=== PATIENT | male | born 1970 | race Caucasian/White ===

== ENCOUNTER 2021-04-29 08:10 | Inpatient (IN) ==
[2021-04-29] MEDS ORDERED: SODIUM CHLORIDE 0.9% 500 ML IV STA (08:36)
[2021-04-29] MEDS ORDERED: ACETAMINOPHEN 1,000 MG/100 ML VIAL IV STA (08:36)
[2021-04-29] MEDS ORDERED: ONDANSETRON INJ 2 MG/ML 2 ML VIAL IV STA (08:36)
[2021-04-29 08:48] LABS: Hematocrit (blood only) 38.6 % (42-52); Hemoglobin 13.3 g/dL (14.0-18.0); Mean Corpuscular Hgb Conc 34.5 g/dL (32-36); Mean Corpuscular Volume 81.3 fL (80-100); Mean Platelet Volume 11.2 fL (7.4-10.4); Platelet Count 129 K/uL (130-400); RDW Coefficient of Variation 13.1 % (11.5-14.5); RDW Standard Deviation 39.2 fL (36.4-46.3); Red Blood Count 4.75 M/uL (4.7-6.1); White Blood Count 7.08 K/uL (4.8-10.8)
[2021-04-29 09:07] LABS: Alanine Aminotransferase 147 (12-78); Albumin Level 2.5 gm/dl (3.4-5.0); Aspartate Aminotransferase 159 U/L (15-37); Blood Urea Nitrogen 27 mg/dl (7-18); Carbon Dioxide 21 mmol/L (21-32); Chloride 100 mmol/L (98-107); Creatinine Clr Calc Pharmacy 84.5 ml/min; Est GFR (African American) 71.7 ml/min; Est GFR (Non-African American) 61.9 ml/min; Glucose 160 mg/dl (70-99); Lipase 105 U/L (73-393); Potassium 4.5 mmol/L (3.5-5.1); Sodium 132 mmol/L (136-145)
[2021-04-29 09:10] LABS: Albumin Globulin Ratio 0.5 (0.9-2); Alkaline Phosphatase 211 U/L (45-117); Bilirubin,Total 0.6 mg/dl (0.2-1); Globulin 4.8 gm/dl (2.5-4.0); Total Protein 7.3 gm/dl (6.4-8.2); Troponin I < 0.015 ng/ml (0-0.045)
[2021-04-29 09:19] LABS: Basophils # (auto) 0.01 K/uL (0-0.2); Basophils % (auto) 0.1 %; Immature Granulocytes # (auto) 0.04 K/uL (0.00-0.02); Immature Granulocytes % (auto) 0.6 %; Lymphocytes # (auto) 1.15 K/uL (1.2-3.4); Lymphocytes % (auto) 16.2 %; Monocytes # (auto) 0.37 K/uL (0.11-0.59); Monocytes % (auto) 5.2 %; Neutrophils # (auto) 5.51 K/uL (1.4-6.5); Neutrophils % (auto) 77.9 %
--- NOTE | 2021-04-29 09:21 | XRay Report ---
XR chest 1V portable CLINICAL HISTORY: weak, cough. COMPARISON STUDY: No previous studies for comparison. TECHNIQUE: 1 view of the chest FINDINGS: Single frontal view of the chest demonstrates the cardiomediastinal silhouette to be within normal li mits. Patchy interstitial and alveolar opacities are present bilaterally. The findings are most jayy cteristic of a viral type pneumonitis. Covid 19 pneumonia should be excluded. There is no evidence fo r pleural effusion. There is no evidence for vascular congestion. There is no acute osseous pathology . IMPRESSION: Patchy interstitial and alveolar opacities bilaterally characteristic of a viral type pne umonitis and probable early Covid 19 pneumonia. ACT 112: Negative or not required by law. Electronically signed by: Ronnell Coleman M.D. 04/29/2021 9:20 AM
[2021-04-29 09:31] LABS: Influenza A virus by PCR Negative (Neg); Influenza B virus by PCR Negative (Neg); RSV by PCR Negative (Neg)
[2021-04-29 09:49] LABS: SARS CoV2 RNA(COVID-19) InHosp POSITIVE (Negative)
--- NOTE | 2021-04-29 10:09 | Emergency Department Note ---
Impression & Plan Dizziness, COVID-19, Nausea & vomiting ED Provider Note Provider: Cam Suárez MD DATE OF SERVICE: 04/26/2021 CHIEF COMPLAINT: Weakness, cough, vomiting HISTORY OF PRESENT ILLNESS: Patient is a 50-year-old gentleman from [place] history of hypertension and diabetes not on insulin presenting here today reporting for the past 3 to 4 days of developing cough and body or drinking for the last several days. States his taste and smell are altered and he is feeling a bit weak and disoriented. Patient denies any trauma or falls. Patient is not vaccinated for Covid. Fevers reported at times. Patient endorses diffuse myalgias and headache but denies significant abdominal pain. Reports he feels a bit short of breath particularly with walking. 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 REVIEW OF SYSTEMS: A total of 10 review of systems was obtained and negative except as stated above in the HPI. 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 NECK: Trachea midline. ENT: Mucous membranes pink and moist. LUNGS: Airway patent. No retractions. Breath sounds clear HEART: Regular rate and rhythm. No chest wall tenderness ABDOMEN: Soft and non-tender, without guarding or rebound. SKIN: Acyanotic, warm, dry, without rashes EXTREMITIES: Without swelling, tenderness or deformity NEUROLOGICAL: No focal deficits moving all extremities to command. No aphasia. No facial droop or slurred speech. EK bpm sinus tachycardia. No PVC or PAC. No acute ST segment elevation or depression. QTC 461. CONTINUOUS CARDIAC MONITORING: was ordered and showed a heart rate of 90s-110s bpm in normal sinus rhythm to sinus tachycardia Patient's laboratory studies and imaging reviewed. Differential includes Infection, dehydration, metabolic abnormality, hypo/hyperglycemia, electrolyte disturbance, anemia, hypoxia, cardiac sources, intracerebral event, toxicologic, neurologic, as well as other pathologies. IMPRESSION/MEDICAL DECISION MAKIN-year-old unvaccinated gentleman positive for Covid today with Covid type symptoms. Chest x-ray consistent with Covid per radiology. No anemia or l eukocytosis. Patient does not appear meningitic. No focal neurological deficit and doubt acute CVA or stroke. No trauma history. Very minimal hyponatremia. Mild transaminitis without bilirubin elevation. No concerning findings for pancreatitis. Influenza and RSV testing is negative. Given some IV fluids here and some Zofran with some improvement of his nausea. Patient somewhat tenuous initially with oxygen in the low 90s however can be weaned off oxygen fairly quickly here. Patient endorses generalized fatigue and weakness but is not altered. CT of the chest completed given his risk factors to exclude PE. Given some Tylenol here to help with fever. CT of the chest completed without findings of PE per radiology but inflammatory changes consistent with Covid. Weaned off oxygen. Updated patient with findings. Attempted ambulation of the patient myself in the room and he became significantly dizzy and lightheaded with standing and is somewhat hypotensive. Patient was unable to take more than a step or 2 and then had to sit back down on the bed. Believe more dehydrationa l and given some IV fluid. . Given this discussed further care at the hospital and the hospitalist was contacted. DIAGNOSIS: COVID-19 pneumonia, nausea and vomiting, dizziness DISPOSITION: Hospitalist will evaluate Patient was agreeable with this plan. Past Med/Surg History Social History Smoking Status: Never smoker Home Meds Home Medications Medication Instructions Recorded Confirmed atorvastatin 10 mg tablet 10 mg PO DAILY 04/29/21 04/29/21 glipizide 5 mg tablet 5 mg PO BID 04/29/21 04/29/21 lisinopril 40 mg tablet 40 mg PO DAILY 04/29/21 04/29/21 metformin 1,000 mg tablet 1,000 mg PO BID 04/29/21 04/29/21 naproxen sodium 220 mg tablet 220 mg PO Q12H PRN 04/29/21 04/29/21 Results & Data (ED) Vital Signs Vital Signs - 24 hr 04/29/21 08:18 04/29/21 08:22 04/29/21 09:51 Temperature 38.2 C H Temperature Source Oral Pulse Rate 99 H Pulse Rate [Finger] 100 H Pulse Rhythm [Finger] Pulse Strength [Finger] Respiratory Rate 20 20 Respiratory Effort / Characteristics Respiratory Depth Respiratory Pattern Blood Pressure 137/84 Blood Pressure [Left Arm] 97/65 L Blood Pressure Mean 101 Blood Pressure Mean [Left Arm] 75 Blood Pressure Position [Left Arm] Pulse Oximetry 90 93 94 Oxygen Delivery Method Room Air Nasal Cannula Room Air Oxygen Flow Rate 2 Sepsis Recent Fever Within 48 Hours Yes Sepsis New/Unexplained Change in Mental Status No Sepsis Action Taken by Nursing No Action Required 04/29/21 11:00 04/29/21 13:00 Temperature Temperature Source Pulse Rate Pulse Rate [Finger] 92 H 87 Pulse Rhythm [Finger] Regular Regular Pulse Strength [Finger] Normal Normal Respiratory Rate 18 18 Respiratory Effort / Characteristics Non-Labored Non-Labored Respiratory Depth Normal Normal Respiratory Pattern Regular Regular Blood Pressure Blood Pressure [Left Arm] 84/61 L 113/62 Blood Pressure Mean Blood Pressure Mean [Left Arm] 68 79 Blood Pressure Position [Left Arm] Lying Lying Pulse Oximetry 94 96 Oxygen Delivery Method Room Air Room Air Oxygen Flow Rate Sepsis Recent Fever Within 48 Hours Sepsis New/Unexplained Change in Mental Status Sepsis Action Taken by Nursing Laboratory Data Result diagrams: 04/29/21 08:25 04/29/21 08:25 Lab Results 04/29/21 04/29/21 04/29/21 Range/Units 08:25 08:25 08:25 WBC 7.08 (4.8-10.8) K/uL RBC 4.75 (4.7-6.1) M/uL Hgb 13.3 L (14.0-18.0) g/dL Hct 38.6 L (42-52) % MCV 81.3 (80-100) fL MCH 28.0 (25-34) pg MCHC 34.5 (32-36) g/dL RDW Std Deviation 39.2 (36.4-46.3) fL RDW Coeff of Daryl 13.1 (11.5-14.5) % Plt Count 129 L (130-400) K/uL MPV 11.2 H (7.4-10.4) fL Immature Gran % (Auto) 0.6 % Neut % (Auto) 77.9 % Lymph % (Auto) 16.2 % Kerr % (Auto) 5.2 % Eos % (Auto) 0.0 % Baso % (Auto) 0.1 % Neut # (Auto) 5.51 (1.4-6.5) K/uL Lymph # (Auto) 1.15 L (1.2-3.4) K/uL Kerr # (Auto) 0.37 (0.11-0.59) K/uL Eos # (Auto) 0.00 (0-0.5) K/uL Baso # (Auto) 0.01 (0-0.2) K/uL Immature Gran # (Auto) 0.04 H (0.00-0.02) K/uL PT 10.0 (9.0-12.0) Seconds INR 1.0 (0.9-1.1) Sodium 132 L (136-145) mmol/L Potassium 4.5 (3.5-5.1) mmol/L Chloride 100 (98-107) mmol/L Carbon Dioxide 21 (21-32) mmol/L Anion Gap 11.0 (3-11) BUN 27 H (7-18) mg/dl Creatinine 1.33 (0.6-1.4) mg/dl Est Cr Clr Drug Dosing 84.5 ml/min Est GFR ( Amer) 71.7 ml/min Est GFR (Non-Af Amer) 61.9 ml/min BUN/Creatinine Ratio 20.0 (10-20) Glucose 160 H (70-99) mg/dl Lactate (0.4-2.0) mmol/L Calcium 8.0 L (8.5-10.1) mg/dl Total Bilirubin 0.6 (0.2-1) mg/dl AST 159 H (15-37) U/L ALT 147 H (12-78) Alkaline Phosphatase 211 H (45-117) U/L Troponin I < 0.015 (0-0.045) ng/ml C-Reactive Protein 8.40 H (0-0.29) mg/dl Total Protein 7.3 (6.4-8.2) gm/dl Albumin 2.5 L (3.4-5.0) gm/dl Globulin 4.8 H (2.5-4.0) gm/dl Albumin/Globulin Ratio 0.5 L (0.9-2) Lipase 105 (73-393) U/L Procalcitonin (0-0.5) ng/ml SARS-CoV-2 (PCR) (Negative) Influenza Type A (PCR) (Neg) Influenza Type B (PCR) (Neg) RSV (RT-PCR) (Neg) 04/29/21 04/29/21 04/29/21 Range/Units 08:25 08:25 09:05 WBC (4.8-10.8) K/uL RBC (4.7-6.1) M/uL Hgb (14.0-18.0) g/dL Hct (42-52) % MCV (80-100) fL MCH (25-34) pg MCHC (32-36) g/dL RDW Std Deviation (36.4-46.3) fL RDW Coeff of Daryl (11.5-14.5) % Plt Count (130-400) K/uL MPV (7.4-10.4) fL Immature Gran % (Auto) % Neut % (Auto) % Lymph % (Auto) % Kerr % (Auto) % Eos % (Auto) % Baso % (Auto) % Neut # (Auto) (1.4-6.5) K/uL Lymph # (Auto) (1.2-3.4) K/uL Kerr # (Auto) (0.11-0.59) K/uL Eos # (Auto) (0-0.5) K/uL Baso # (Auto) (0-0.2) K/uL Immature Gran # (Auto) (0.00-0.02) K/uL PT (9.0-12.0) Seconds INR (0.9-1.1) Sodium (136-145) mmol/L Potassium (3.5-5.1) mmol/L Chloride (98-107) mmol/L Carbon Dioxide (21-32) mmol/L Anion Gap (3-11) BUN (7-18) mg/dl Creatinine (0.6-1.4) mg/dl Est Cr Clr Drug Dosing ml/min Est GFR ( Amer) ml/min Est GFR (Non-Af Amer) ml/min BUN/Creatinine Ratio (10-20) Glucose (70-99) mg/dl Lactate 1.7 (0.4-2.0) mmol/L Calcium (8.5-10.1) mg/dl Total Bilirubin (0.2-1) mg/dl AST (15-37) U/L ALT (12-78) Alkaline Phosphatase (45-117) U/L Troponin I (0-0.045) ng/ml C-Reactive Protein (0-0.29) mg/dl Total Protein (6.4-8.2) gm/dl Albumin (3.4-5.0) gm/dl Globulin (2.5-4.0) gm/dl Albumin/Globulin Ratio (0.9-2) Lipase (73-393) U/L Procalcitonin 0.38 (0-0.5) ng/ml SARS-CoV-2 (PCR) POSITIVE A* (Negative) Influenza Type A (PCR) Negative (Neg) Influenza Type B (PCR) Negative (Neg) RSV (RT-PCR) Negative (Neg) Administered Medications Discontinued Medications Sodium Chloride (Nss) 500 mls @ 999 mls/hr IV .Q31M STA Stop: 04/29/21 09:06 Last Infusion: 04/29/21 09:48 Dose: 0 mls/hr Documented by: [id number] Admin: 04/29/21 08:56 Dose: 999 mls/hr Documented by: [id number] Acetaminophen (Ofirmev) 1,000 mg in 100 mls @ 400 mls/hr IV NOW STA Stop: 04/29/21 08:50 Last Infusion: 04/29/21 09:48 Dose: 0 mls/hr Documented by: [id number] Admin: 04/29/21 08:52 Dose: 400 mls/hr Documented by: [id number] Sodium Chloride (Nss 1000ml) 500 mls @ 999 mls/hr IV .Q31M ONE Stop: 04/29/21 12:11 Last Infusion: 04/29/21 12:33 Dose: 0 mls/hr Documented by: [id number] Admin: 04/29/21 11:56 Dose: 999 mls/hr Documented by: [id number] Ondansetron HCl (Ondansetron Inj 2 Mg/Ml 2 Ml Vial) 4 mg IV NOW STA Stop: 04/29/21 08:37 Last Admin: 04/29/21 08:52 Dose: 4 mg Documented by: [id number] Imaging Data Radiologist's Impression: Chest X-Ray 04/29/21 08:36 XR chest 1V portable CLINICAL HISTORY: weak, cough. COMPARISON STUDY: No previous studies for comparison. TECHNIQUE: 1 view of the chest FINDINGS: Single frontal view of the chest demonstrates the cardiomediastinal silhouette to be within normal limits. Patchy interstitial and alveolar opacities are present bilaterally. The findings are most characteristic of a viral type pneumonitis. Covid 19 pneumonia should be excluded. There is no evidence for pleural effusion. There is no evidence for vascular congestion. There is no acute osseous pathology. IMPRESSION: Patchy interstitial and alveolar opacities bilaterally characteristic of a viral type pneumonitis and probable early Covid 19 pneumonia. ACT 112: Negative or not required by law. Electronically signed by: Ronnell Coleman M.D. 04/29/2021 9:20 AM Chest CTA 04/29/21 09:34 CT ANGIOGRAPHY OF THE CHEST, PULMONARY EMBOLUS PROTOCOL CLINICAL HISTORY: COVID, SOB. Evaluate for pulmonary embolus. COMPARISON STUDY: Chest radiograph April 29, 2021. TECHNIQUE: Following IV administration of 120 mL of Optiray, helical axial images of the chest were obtained utilizing the pulmonary embolus protocol. Maximal intensity projections and sagittal and coronal reformats were viewed on an independent 3D workstation. IV contrast was administered without complication. Automated exposure control was utilized for the study. A dose lowering technique was utilized adhering to the principles of ALARA. CT DOSE: 801.70 mGy.cm FINDINGS: No pulmonary emboli are identified. There is no thoracic aortic dissection. The size the heart is normal. There is no pericardial effusion. There are multiple mildly enlarged mediastinal and bilateral hilar lymph nodes. No pneumothorax or pleural effusion is noted. Extensive multifocal groundglass opacities are noted throughout the lungs. Developing consolidation within the right lower lobe is noted. Central airways are patent. No acute fracture or suspicious lesion is identified within visualized portions of the bony thorax. The gallbladder is surgically absent. IMPRESSION: 1. No pulmonary emboli identified. 2. Extensive ground glass opacities throughout the lungs with developing consolidation. The findings represent viral pneumonia. 3. Multiple mildly enlarged mediastinal and bilateral hilar lymph nodes which are likely reactive. ACT 112: Negative or not required by law. Electronically signed by: Dimitry Van M.D. 04/29/2021 10:53 AM Discharge Plan Visit Data Chief Complaint: Illness Stated Complaint: WEAKNESS, DISORIENTED ED Provider: Cam Suárez Discharge Problem: Dizziness, COVID-19, Nausea & vomiting Patient Disposition: Being Evaluated by Hospitalist Forms Stand Alone Forms: My [facility] [place] [employer] Prescriptions Prescriptions: No Action atorvastatin 10 mg Tablet 10 mg PO DAILY RF: 0 metformin 1,000 mg Tablet 1,000 mg PO BID RF: 0 naproxen sodium 220 mg Tablet 220 mg PO Q12H PRN (Reason: Pain) RF: 0 lisinopril 40 mg Tablet 40 mg PO DAILY RF: 0 glipizide 5 mg Tablet 5 mg PO BID RF: 0 Referrals Referrals: MICHAEL HEAD [Other] Discharge Problem: Nausea & vomiting Qualifiers: Vomiting type: unspecified Qualified Code(s): R11.2 - Nausea with vomiting, unspecified
--- NOTE | 2021-04-29 10:54 | CT Scan Report ---
CT ANGIOGRAPHY OF THE CHEST, PULMONARY EMBOLUS PROTOCOL CLINICAL HISTORY: SINCERE, SOB. Evaluate for pulmonary embolus. COMPARISON STUDY: Chest radiograph April 29, 2021. TECHNIQUE: Following IV administration of 120 mL of Optiray, helical axial images of the chest were o btained utilizing the pulmonary embolus protocol. Maximal intensity projections and sagittal and cor onal reformats were viewed on an independent 3D workstation. IV contrast was administered without co mplication. Automated exposure control was utilized for the study. A dose lowering technique was ut ilized adhering to the principles of ALARA. CT DOSE: 801.70 mGy.cm FINDINGS: No pulmonary emboli are identified. There is no thoracic aortic dissection. The size the h eart is normal. There is no pericardial effusion. There are multiple mildly enlarged mediastinal and bilateral hilar lymph nodes. No pneumothorax or pleural effusion is noted. Extensive multifocal groun dglass opacities are noted throughout the lungs. Developing consolidation within the right lower lobe is noted. Central airways are patent. No acute fracture or suspicious lesion is identified within vi sualized portions of the bony thorax. The gallbladder is surgically absent. IMPRESSION: 1. No pulmonary emboli identified. 2. Extensive ground glass opacities throughout the lungs with developing consolidation. The findings represent viral pneumonia. 3. Multiple mildly enlarged mediastinal and bilateral hilar lymph nodes which are likely reactive. ACT 112: Negative or not required by law. Electronically signed by: Dimitry Van M.D. 04/29/2021 10:53 AM
[2021-04-29] MEDS ORDERED: SODIUM CHLORIDE 0.9% 1000ML 500 ML IV ONE (11:41)
[2021-04-29] MEDS ORDERED: GLUCAGON FOR INJ 1 MG VIAL SQ PRN (14:39)
[2021-04-29] MEDS ORDERED: GLUCOSE 40% GEL 15 GM TUBE PO PRN (14:39)
[2021-04-29] MEDS ORDERED: GLUCOSE 10 TABS/TUBE PO PRN (14:39)
[2021-04-29] MEDS ORDERED: DEXTROSE 50% 50 ML SYRINGE IV PRN (14:39)
[2021-04-29] MEDS ORDERED: CARBOHYDRATES FOR HYPOGLYCEMIA PO PRN (14:39)
--- NOTE | 2021-04-29 15:24 | History & Physical Report ---
Date of Service April 29, 2021 Assessment & Plan (1) COVID-19: Plan: -Admit to 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 -In the ED, patient tested positive for COVID-19. He is not vaccinated. -Currently saturating well on room air, does not meet criteria for COVID-19 directed therapies at this time. CTA chest negative for pulmonary embolism however shows signs of viral pneumonia. -Ambulation trial was attempted in ED however patient was too weak and fell back onto the bed. Also having intermittent hypotension. -Continue supportive care with IVF, PT/OT eval's -Given reports of diarrhea, will check for C. difficile and stool PCR (2) Hypotension: Plan: -Intermittent hypotension that improved after IVF -Likely due to hypovolemia from nausea, vomiting, diarrhea, poor appetite -Hold antihypertensives, continue IVF (3) Transaminitis: Plan: -T bili 0.6, AST 139, ALT 147, alk phos 211 -Likely due to COVID-19 -Patient denies abdominal pain -Continue to trend, if not improving, consider imaging (4) DM type 2 (diabetes mellitus, type 2): Plan: -Unknown HgbA1c, will check with a.m. labs -Hold home oral agents and utilize NovoLog per protocol while hospitalized (5) HTN (hypertension): Plan: -Holding antihypertensives above (6) DVT prophylaxis: Plan: -SQ Lovenox Admission and Anticipated Discharge Date Admission Date: April 29, 2021 History of Present Illness Chief Complaint: Lightheadedness, nausea, diarrhea Primary Care Provider: Tomas Buitrago, 50-year-old male with PMH DM type II, HTN, dyslipidemia, and other problems to below who presents to the ED for evaluation of lightheadedness, nausea, diarrhea. 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 Reports getting sick about 3 to 4 days ago and has been staying in his truck [place] the truck stop. Patient reports severe nausea with a very poor appetite. He is also had vomiting and diarrhea. Denies hematemesis, coffee- ground emesis, bright red bleeding per rectum, dark tarry stools. No abdominal pain. Patient has a low-grade fever in the ED however is unaware of any fevers prior to coming to the hospital. Patient reports a minimal nonproductive cough. No shortness of breath. Reports feeling very lightheaded and dizzy with standing however no syncopal event. No chest pain. Denies urinary symptoms. In the ED, patient tested positive for COVID-19. He is saturating well on room air. Labs show a mild transaminitis. CTA chest negative for pulmonary embolism. Patient was given IV Tylenol, IV Zofran, IVF. Allergies Allergy/AdvReac Type Severity Reaction Status Date / Time No Known Allergies Allergy Verified 04/29/21 18:06 Home Medications Medication Instructions Recorded Confirmed Type atorvastatin 10 mg tablet 10 mg PO DAILY 04/29/21 04/29/21 History glipizide 5 mg tablet 5 mg PO BID 04/29/21 04/29/21 History lisinopril 40 mg tablet 40 mg PO DAILY 04/29/21 04/29/21 History metformin 1,000 mg tablet 1,000 mg PO BID 04/29/21 04/29/21 History naproxen sodium 220 mg tablet 220 mg PO Q12H PRN 04/29/21 04/29/21 History Past Med/Surg History Medical History DM type 2 (diabetes mellitus, type 2) Dyslipidemia HTN (hypertension) Surgical History No significant past surgical history Family History (Updated 04/29/21 @ 15:38 by PORSHA Garcia) Denies family history of Heart disease Stroke Social History (Updated 04/29/21 @ 15:38 by PORSHA Garcia) Smoking Status: Never smoker Hx Alcohol Use: Yes Alcohol Intake Frequency: 2-4 x/Month Review of Systems Review of Systems: ROS per HPI, all other systems reviewed and negative Physical Exam Physical Exam: Please refer to Dr. Gauthier's addendum for physical exam Results & Data Results & Data ([facility]) Vital Signs (Past 12 Hours) Vital Signs Temp Pulse Pulse Resp BP BP Pulse Ox 04/29/21 13:00 87 18 113/62 96 04/29/21 11:00 92 H 18 84/61 L 94 04/29/21 09:51 100 H 20 97/65 L 94 04/29/21 08:22 93 04/29/21 08:18 38.2 C H 99 H 20 137/84 90 Laboratory Results Short CBC 04/29/21 Range/Units 08:25 WBC 7.08 (4.8-10.8) K/uL Hgb 13.3 L (14.0-18.0) g/dL Hct 38.6 L (42-52) % Plt Count 129 L (130-400) K/uL BMP 04/29/21 08:25 Sodium 132 L Potassium 4.5 Chloride 100 Carbon Dioxide 21 BUN 27 H Creatinine 1.33 Glucose 160 H Calcium 8.0 L Cardiac Enzymes 04/29/21 Range/Units 08:25 Troponin I < 0.015 (0-0.045) ng/ml Liver Function 04/29/21 Range/Units 08:25 Total Bilirubin 0.6 (0.2-1) mg/dl AST 159 H (15-37) U/L ALT 147 H (12-78) Alkaline Phosphatase 211 H (45-117) U/L Albumin 2.5 L (3.4-5.0) gm/dl Diagnostic Findings Chest X-Ray 04/29/21 08:36 XR chest 1V portable CLINICAL HISTORY: weak, cough. COMPARISON STUDY: No previous studies for comparison. TECHNIQUE: 1 view of the chest FINDINGS: Single frontal view of the chest demonstrates the cardiomediastinal silhouette to be within normal limits. Patchy interstitial and alveolar opacities are present bilaterally. The findings are most characteristic of a viral type pneumonitis. Covid 19 pneumonia should be excluded. There is no evidence for pleural effusion. There is no evidence for vascular congestion. There is no acute osseous pathology. IMPRESSION: Patchy interstitial and alveolar opacities bilaterally characteristic of a viral type pneumonitis and probable early Covid 19 pneumonia. ACT 112: Negative or not required by law. Electronically signed by: Ronnell Coleman M.D. 04/29/2021 9:20 AM Chest CTA 04/29/21 09:34 CT ANGIOGRAPHY OF THE CHEST, PULMONARY EMBOLUS PROTOCOL CLINICAL HISTORY: COVID, SOB. Evaluate for pulmonary embolus. COMPARISON STUDY: Chest radiograph April 29, 2021. TECHNIQUE: Following IV administration of 120 mL of Optiray, helical axial images of the chest were obtained utilizing the pulmonary embolus protocol. Maximal intensity projections and sagittal and coronal reformats were viewed on an independent 3D workstation. IV contrast was administered without complicat ion. Automated exposure control was utilized for the study. A dose lowering technique was utilized adhering to the principles of ALARA. CT DOSE: 801.70 mGy.cm FINDINGS: No pulmonary emboli are identified. There is no thoracic aortic dissection. The size the heart is normal. There is no pericardial effusion. There are multiple mildly enlarged mediastinal and bilateral hilar lymph nodes. No pneumothorax or pleural effusion is noted. Extensive multifocal groundglass opacities are noted throughout the lungs. Developing consolidation within the right lower lobe is noted. Central airways are patent. No acute fracture or suspicious lesion is identified within visualized portions of the bony thorax. The gallbladder is surgically absent. IMPRESSION: 1. No pulmonary emboli identified. 2. Extensive ground glass opacities throughout the lungs with developing consolidation. The findings represent viral pneumonia. 3. Multiple mildly enlarged mediastinal and bilateral hilar lymph nodes which are likely reactive. ACT 112: Negative or not required by law. Electronically signed by: Dimitry Van M.D. 04/29/2021 10:53 AM Code Status & VTE Plan VTE Prophylaxis Plan VTE Prophylaxis will be ordered: Yes Supervising Physician Co-Signing Physician Notes Patient is a 50-year-old male with history of diabetes mellitus, hypertension and other medical problems presents with history of nausea, vomiting, diarrhea, generalized weakness and dizziness since 3 to 4 days duration. Patient also states having poor appetite. States having subjective low-grade fever but denies any chest pain, shortness of breath. Please review HPI for complete details of presentation. He was saturating well on room air while in the ED. He was tested positive for Covid. Blood Work suggestive of Thrombocytopenia 06/11/2018, hyponatremia 132, transaminitis, CRP 8.4, normal procalcitonin. Physical Exam: Vitals signs as noted above General Appearance:Obese, no apparent distress Head: normocephalic, Atraumatic Eyes: normal inspection, EOMI Neck: supple, Trachea midline Respiratory/Chest: Decreased breath sounds, B/L crackles, No accessory muscle use Cardiovascular: S1, S2, No murmur Abdomen/GI:Soft, Non tender, Bowel sounds present Extremities/Musculoskeletal:normal inspection, no edema Neurologic/Psych:AAOX3, grossly no focal neurological deficits Skin: normal color, warm COVID-19 infection GI symptoms, thrombocytopenia and transaminitis secondary to COVID-19 Hyponatremia Dehydration Continue IV fluids Check stool studies to rule out infection Agree with holding antihypertensives DVT Px No Indication for antiviral therapy,steroids given no hypoxia. I personally reviewed the record. Patient is interviewed and examined at bedside. Patient's care is coordinated with Kassidy Viveros [facility] [employer]. Please refer to the documentation above for details of patient's presentation and for discussion of other issues.
--- NOTE | 2021-04-29 16:01 | Electrocardiogram Report ---
Test Reason : Blood Pressure : / mmHG Vent. Rate : 101 BPM Atrial Rate : 101 BPM P-R Int : 120 ms QRS Dur : 084 ms QT Int : 356 ms P-R-T Axes : 049 005 047 degrees QTc Int : 461 ms Poor data quality, interpretation may be adversely affected Sinus tachycardia Otherwise normal ECG No previous ECGs available Confirmed by Vinh Restrepo ([id number]) on 04/29/2021 4:01:27 PM Referred By: Confirmed By:Vinh Restrepo
[2021-04-29] MEDS ORDERED: INSULIN ASPART 100 UNITS/ML 3 ML PEN SC SCH (16:30)
[2021-04-29] MEDS: PATIENT'S ALLERGY INFO NEEDS ENTERED SCH (18:24)
[2021-04-29] MEDS: SODIUM CHLORIDE 0.9% 1000ML 1,000 ML IV SCH (18:39)
[2021-04-29] MEDS: ENOXAPARIN INJ 40 MG/0.4 ML SYR SQ SCH (18:40)
[2021-04-29] MEDS: INSULIN ASPART PER UNIT SC SCH ×2 (19:03→22:44)
[2021-04-29] MEDS ORDERED: REMDESIVIR 200 MG in SODIUM CHLORIDE 0.9% 210 ML IV STA (23:34)
[2021-04-29] MEDS ORDERED: KETOROLAC 30 MG/ML VIAL IV ONE (23:44)
[2021-04-30] MEDS: SODIUM CHLORIDE 0.9% 1000ML 1,000 ML IV SCH ×2 (00:19→09:01)
[2021-04-30] MEDS: SODIUM CHLORIDE 0.9% 10ML FLUSH IV SCH ×2 (00:46→23:06)
[2021-04-30] MEDS: dexAMETHasone 6 MG in SYRINGE 0 ML IV SCH ×2 (00:46→09:18)
[2021-04-30] MEDS ORDERED: ACETAMINOPHEN 325 MG TAB PO PRN (06:53)
--- NOTE | 2021-04-30 06:55 | Hospitalist Progress Note ---
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 -In the ED, patient tested positive for COVID-19. He is not vaccinated. -On admission saturating well on room air, did not meet criteria for COVID-19 directed therapies - CTA chest negative for pulmonary embolism however shows signs of viral pneumonia. -Ambulation trial was attempted in ED however patient was too weak and fell back onto the bed. Also having intermittent hypotension. -Continue supportive care with IVF, PT/OT eval's -Given reports of diarrhea, check for C. difficile and stool PCR -overnight pt was placed on 3L of O2, started on remdesivir and dexamrthasone (2) Hypotension: Plan: -Intermittent hypotension that improved after IVF -Likely due to hypovolemia from nausea, vomiting, diarrhea, poor appetite -Hold antihypertensives, continued IVF overnight (3) Transaminitis: Plan: -T bili 0.6, AST 139, ALT 147, alk phos 211 -Likely due to COVID-19 -Patient denies abdominal pain -Continue to trend, if not improving, consider imaging (4) DM type 2 (diabetes mellitus, type 2): Plan: -Unknown HgbA1c, will check with a.m. labs -Hold home oral agents and utilize NovoLog per protocol while hospitalized (5) HTN (hypertension): Plan: -Holding antihypertensives above (6) DVT prophylaxis: Plan: -SQ Lovenox Admission and Anticipated Discharge Date Admission Date: April 29, 2021 Subjective Pt seen in follow up of shortness of breath, cough, 2/2 covid 19 infection Overnight pt required 3L of O2, was started on remdesivir, dexamethasone Currently sitting up on the edge of the bed, coughing, but on RA denies any chest pain, nausea, v, abd. pain. Pt has had loose stools Review of Systems Review of Systems: All systems reviewed & are unremarkable except as noted in Subjective Physical Exam Physical Exam: General Appearance:Obese M no apparent distress, coughing excessively Head:� normocephalic, Atraumatic Eyes:� normal inspection, EOMI Neck:� supple, Trachea midline Respiratory/Chest: Decreased breath sounds, No accessory muscle use Cardiovascular: S1, S2, No murmur Abdomen/GI:Soft, Non tender, obese, Bowel sounds present Extremities/Musculoskeletal:normal inspection, no edema Neurologic/Psych:AAOX3, no facial asymmetry, moves extremities Skin:� normal color, warm Results & Data Results & Data ([facility]) Vital Signs (Past 12 Hours) Vital Signs Temp Pulse Resp BP Pulse Ox 04/30/21 00:54 37.9 C H 04/29/21 23:38 38.5 C H 105 H 22 127/83 93 04/29/21 20:10 37.6 C H 109 H 16 124/78 93 04/29/21 19:30 101 H 24 94 Laboratory Results 04/30/21 04/30/21 04/30/21 Range/Units 08:53 08:37 08:37 WBC (4.8-10.8) K/uL RBC (4.7-6.1) M/uL Hgb (14.0-18.0) g/dL Hct (42-52) % MCV (80-100) fL MCH (25-34) pg MCHC (32-36) g/dL RDW Std Deviation (36.4-46.3) fL RDW Coeff of Daryl (11.5-14.5) % Plt Count (130-400) K/uL MPV (7.4-10.4) fL Sodium 133 L (136-145) mmol/L Potassium 5.7 H D (3.5-5.1) mmol/L Chloride 104 (98-107) mmol/L Carbon Dioxide 22 (21-32) mmol/L Anion Gap 7.0 (3-11) BUN 31 H (7-18) mg/dl Creatinine 1.24 (0.6-1.4) mg/dl Est Cr Clr Drug Dosing 90.6 ml/min Est GFR ( Amer) 78.1 ml/min Est GFR (Non-Af Amer) 67.4 ml/min BUN/Creatinine Ratio 25.3 H (10-20) Glucose 239 H (70-99) mg/dl POC Glucose 214 H (70-99) mg/dl Estimat Average Glucose Pending Hemoglobin A1c Pending Calcium 7.7 L (8.5-10.1) mg/dl Total Bilirubin 0.6 (0.2-1) mg/dl Direct Bilirubin 0.2 (0-0.2) mg/dl AST 84 H (15-37) U/L ALT 105 H (12-78) Alkaline Phosphatase 199 H (45-117) U/L Total Protein 7.0 (6.4-8.2) gm/dl Albumin 2.4 L (3.4-5.0) gm/dl 04/30/21 04/29/21 04/29/21 Range/Units 08:37 22:38 17:10 WBC 8.17 (4.8-10.8) K/uL RBC 4.75 (4.7-6.1) M/uL Hgb 13.1 L (14.0-18.0) g/dL Hct 39.2 L (42-52) % MCV 82.5 (80-100) fL MCH 27.6 (25-34) pg MCHC 33.4 (32-36) g/dL RDW Std Deviation 40.2 (36.4-46.3) fL RDW Coeff of Daryl 13.2 (11.5-14.5) % Plt Count 155 (130-400) K/uL MPV 12.2 H (7.4-10.4) fL Sodium (136-145) mmol/L Potassium (3.5-5.1) mmol/L Chloride (98-107) mmol/L Carbon Dioxide (21-32) mmol/L Anion Gap (3-11) BUN (7-18) mg/dl Creatinine (0.6-1.4) mg/dl Est Cr Clr Drug Dosing ml/min Est GFR ( Amer) ml/min Est GFR (Non-Af Amer) ml/min BUN/Creatinine Ratio (10-20) Glucose (70-99) mg/dl POC Glucose 123 H 128 H (70-99) mg/dl Estimat Average Glucose Hemoglobin A1c Calcium (8.5-10.1) mg/dl Total Bilirubin (0.2-1) mg/dl Direct Bilirubin (0-0.2) mg/dl AST (15-37) U/L ALT (12-78) Alkaline Phosphatase (45-117) U/L Total Protein (6.4-8.2) gm/dl Albumin (3.4-5.0) gm/dl Medications Administered Current Inpatient Medications Acetaminophen (Acetaminophen 325 Mg Tab) 650 mg PO Q4H PRN PRN Reason: Pain or Fever Stop: 05/30/21 06:52 Dextrose (Dextrose 50% 50 Ml Syringe) 25 - 50 ml IV UD PRN; Protocol PRN Reason: Hypoglycemia Protocol Stop: 05/29/21 14:38 Enoxaparin Sodium (Enoxaparin Inj 40 Mg/0.4 Ml Syr) 40 mg SQ Q24H GAYLA Stop: 05/29/21 14:38 Last Admin: 04/29/21 18:40 Dose: 40 mg Documented by: Glucagon (Glucagon For Inj 1 Mg Vial) 1 mg SQ UD PRN; Protocol PRN Reason: Hypoglycemia Protocol Stop: 05/29/21 14:38 Glucose (Glucose 10 Tabs/Tube) 4 - 8 tabs PO UD PRN; Protocol PRN Reason: Hypoglycemia Protocol Stop: 05/29/21 14:38 Glucose (Glucose 40% Gel 15 Gm Tube) 15 - 30 gm PO UD PRN; Protocol PRN Reason: Hypoglycemia Protocol Stop: 05/29/21 14:38 Sodium Chloride (Nss 1000ml) 1,000 mls @ 125 mls/hr IV .Q8H GAYLA Stop: 05/29/21 14:38 Last Infusion: 04/30/21 06:24 Dose: 125 mls/hr Documented by: Remdesivir 100 mg/ Sodium (Chloride) 250 mls @ 250 mls/hr IV Q24H GAYLA; Protocol Stop: 05/03/21 20:59 Dexamethasone 6 mg/ Syringe 1.5 mls @ 1 mls/min IV DAILY GAYLA Stop: 05/09/21 23:34 Last Admin: 04/30/21 00:46 Dose: 1 mls/min Documented by: Insulin Aspart (Insulin Aspart Per Unit) 0 units SC ACHS GAYLA Stop: 05/30/21 07:29 Miscellaneous (Carbohydrates For Hypoglycemia ) 15 - 30 gm PO UD PRN PRN Reason: Hypoglycemia Protocol Stop: 05/29/21 14:38 Sodium Chloride (Sodium Chloride 0.9% 10ml Flush) 30 ml IV Q24H GAYLA Stop: 05/03/21 23:46 Last Admin: 04/30/21 00:46 Dose: 30 ml Documented by:
[2021-04-30 08:58] LABS: Hematocrit (blood only) 39.2 % (42-52); Hemoglobin 13.1 g/dL (14.0-18.0); Mean Corpuscular Hemoglobin 27.6 pg (25-34); Mean Corpuscular Hgb Conc 33.4 g/dL (32-36); Mean Corpuscular Volume 82.5 fL (80-100); Mean Platelet Volume 12.2 fL (7.4-10.4); Platelet Count 155 K/uL (130-400); RDW Coefficient of Variation 13.2 % (11.5-14.5); RDW Standard Deviation 40.2 fL (36.4-46.3); Red Blood Count 4.75 M/uL (4.7-6.1); White Blood Count 8.17 K/uL (4.8-10.8)
[2021-04-30] MEDS: INSULIN ASPART PER UNIT SC SCH ×4 (09:01→22:54)
[2021-04-30 09:29] LABS: Albumin Level 2.4 gm/dl (3.4-5.0); BUN Creatinine Ratio 25.3 (10-20); Bilirubin Direct 0.2 mg/dl (0-0.2); Bilirubin,Total 0.6 mg/dl (0.2-1); Calcium 7.7 mg/dl (8.5-10.1); Creatinine Clr Calc Pharmacy 90.6 ml/min; Est GFR (African American) 78.1 ml/min; Est GFR (Non-African American) 67.4 ml/min; Potassium 5.7 mmol/L (3.5-5.1)
[2021-04-30] MEDS ORDERED: SODIUM POLYSTYRENE SULFONATE 15G/60ML SUSP PO STA (10:20)
[2021-04-30 10:39] LABS: Estimated Average Glucose 194 mg/dl; Hemoglobin A1C 8.4 % (4.5-5.6)
[2021-04-30] MEDS ORDERED: CALCIUM GLUCONATE 10% 1,000 MG in SODIUM CHLORIDE 0.9% 50 ML IV ONE (10:45)
[2021-04-30 11:52] LABS: Appearance Urine Clear (Clear); Bacteria Urine Automated Negative (Negative); Bilirubin Urine Negative (Negative); Blood Urine Negative (Negative); Color Urine Dark Yellow; Epithelial Cell Urine Auto >30 /lpf (0-5); Glucose Urine UA 1+ (Negative); Ketones Urine Trace (Negative); Leukocyte Esterase Urine Negative (Negative); Nitrite Urine Negative (Negative); Protein Urine 2+ (Negative); RBC Urine Automated 0-4 /hpf (0-4); Specific Gravity Urine 1.045 (1.000-1.030); Urobilinogen Urine Negative (Negative); pH Urine 5.5 (4.5-7.5)
[2021-04-30] MEDS ORDERED: BENZONATATE 100 MG CAPSULE PO PRN (13:23)
[2021-04-30] MEDS ORDERED: PHARMACY GLYCEMIC MGMT CONSULT PRN (13:25)
[2021-04-30] MEDS: INSULIN HUMAN NPH SC SCH (14:29)
--- NOTE | 2021-04-30 14:29 | Pharmacy Report ---
Pharmacy Glycemic Short Note 2 - Date of Service April 30, 2021 - Glycemic Short BSG Results (Last 24 hours): 04/29/21 04/29/21 04/30/21 17:10 22:38 08:37 Glucose 239 H POC Glucose 128 H 123 H 04/30/21 04/30/21 04/30/21 08:53 13:16 13:44 Glucose POC Glucose 214 H 339 H* 290 H OUTPATIENT ANTIDIABETIC REGIMEN: * Metformin 1g PO BID * Glipizide 5mg BID ASSESSMENT: * 50 year old male, type 2 diabetic, with COVID-19 on IV steroids, hyperglycemic * No basal on board, start NPH now * Tighten CF and CR and goal range and adjust to goal BSG PLAN FOR INPATIENT GLYCEMIC CONTROL: * Hold outpatient oral diabetes medications * Basal insulin * NPH 35 units SQ daily starting now * Bolus insulin * NovoLog per scale ACHS or Q6hrs while NPO * Goal Range: Low 110 mg/dL - High 140 mg/dL * Correction Factor: 15 mg/dL/unit * Nutritional / Prandial insulin per carb ratio of 1 unit per 5 grams CHO consumed PLAN FOR DISCHARGE: * to be determined
[2021-04-30 15:20] LABS: Adenovirus F 40/41 PCR Not Detected (NotDetected); Astrovirus PCR Not Detected (NotDetected); Campylobacter PCR Not Detected (NotDetected); Clostridium diff Toxin A/B PCR Not Detected (NotDetected); Cryptosporidium PCR Not Detected (NotDetected); Cyclospora cayetanensis PCR Not Detected (NotDetected); Entamoeba histolytica PCR Not Detected (NotDetected); Enteroaggregative E.coli(EAEC) Not Detected (NotDetected); Enteropathogenic E.coli (EPEC) Not Detected (NotDetected); Enterotoxigenic E.coli (ETEC) Not Detected (NotDetected); Giardia lamblia PCR Not Detected (NotDetected); Norovirus GI/GII PCR Not Detected (NotDetected); Plesiomonas shigelloides PCR Not Detected (NotDetected); Rotavirus A PCR Not Detected (NotDetected); Salmonella PCR Not Detected (NotDetected); Sapovirus PCR Not Detected (NotDetected); Shiga-like Toxin E.coli (STEC) Not Detected (NotDetected); Shigella/Enteroinvasive E.coli Not Detected (NotDetected); Vibrio cholerae PCR Not Detected (NotDetected); Vibrio species PCR Not Detected (NotDetected); Yersinia enterocolitica PCR Not Detected (NotDetected)
[2021-04-30 15:23] LABS: BUN Creatinine Ratio 25.7 (10-20); Calcium 8.8 mg/dl (8.5-10.1); Creatinine Clr Calc Pharmacy 79.1 ml/min; Est GFR (African American) 66.3 ml/min; Est GFR (Non-African American) 57.2 ml/min; Potassium 4.7 mmol/L (3.5-5.1)
[2021-04-30] MEDS: REMDESIVIR 100 MG in SODIUM CHLORIDE 0.9% 230 ML IV SCH (21:20)
[2021-04-30] MEDS: ENOXAPARIN INJ 40 MG/0.4 ML SYR SQ SCH (21:20)
[2021-04-30] MEDS ORDERED: guaiFENesin/CODEINE 100MG/10MG 5ML UDC PO PRN (21:52)
[2021-05-01 08:23] LABS: Hematocrit (blood only) 36.4 % (42-52); Hemoglobin 12.3 g/dL (14.0-18.0); Mean Corpuscular Hgb Conc 33.8 g/dL (32-36); Mean Corpuscular Volume 82.7 fL (80-100); Mean Platelet Volume 12.2 fL (7.4-10.4); Platelet Count 181 K/uL (130-400); RDW Coefficient of Variation 13.3 % (11.5-14.5); RDW Standard Deviation 40.6 fL (36.4-46.3); White Blood Count 10.17 K/uL (4.8-10.8)
--- NOTE | 2021-05-01 08:32 | Hospitalist Progress Note ---
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 -In the ED, patient tested positive for COVID-19. He is not vaccinated. -On admission saturating well on room air, did not meet criteria for COVID-19 directed therapies - CTA chest negative for pulmonary embolism however shows signs of viral pneumonia. -Ambulation trial was attempted in ED however patient was too weak and fell back onto the bed. Also having intermittent hypotension. -Continue supportive care with IVF, PT/OT eval's -Given reports of diarrhea, check for C. difficile and stool PCR - negative -overnight pt was placed on 3L of O2, started on remdesivir and dexamethasone 05/01 - pt now on 5L O2, repeat CXR and procalcitonin, consider empiric Abx (2) Hypotension: Plan: -Intermittent hypotension that improved after IVF -Likely due to hypovolemia from nausea, vomiting, diarrhea, poor appetite -Hold antihypertensives, continued IVF overnight - fluid stopped, BP normal - will give prn lasix (3) Transaminitis: Plan: -T bili 0.6, AST 139, ALT 147, alk phos 211 -Likely due to COVID-19 -Patient denies abdominal pain -Continue to trend, if not improving, consider imaging (4) DM type 2 (diabetes mellitus, type 2): Plan: - Current HgbA1c 8.4% - Hold home oral agents and utilize NovoLog per protocol while hospitalized - will need outpt follow up (5) HTN (hypertension): Plan: -Holding antihypertensives above (6) DVT prophylaxis: Plan: -SQ Lovenox Admission and Anticipated Discharge Date Admission Date: April 29, 2021 Subjective Pt seen in follow up of shortness of breath, cough, hypoxia 2/2 covid 19 infection Currently pt is on 5L of O2 on remdesivir, dexamethasone Currently sitting up on the edge of the bed, coughing, but on RA denies any chest pain, nausea, v, abd. pain. Pt has had loose stools, now says he did not have any BM today Review of Systems Review of Systems: All systems reviewed & are unremarkable except as noted in Subjective Physical Exam Physical Exam: General Appearance:Obese M no apparent distress Head:� normocephalic, Atraumatic Eyes:� normal inspection, EOMI Neck:� supple, Trachea midline Respiratory/Chest: Decreased breath sounds, No accessory muscle use Cardiovascular: S1, S2, No murmur Abdomen/GI:Soft, Non tender, obese, Bowel sounds present Extremities/Musculoskeletal:normal inspection, no edema Neurologic/Psych:AAOX3, no facial asymmetry, moves extremities Skin:� normal color, warm Results & Data Results & Data ([facility]) Vital Signs (Past 12 Hours) Vital Signs Temp Pulse Resp BP Pulse Ox 04/30/21 21:57 36.4 C L 96 H 22 126/77 92 Medications Administered Current Inpatient Medications Acetaminophen (Acetaminophen 325 Mg Tab) 650 mg PO Q4H PRN PRN Reason: Pain or Fever Stop: 05/30/21 06:52 Benzonatate (Benzonatate 100 Mg Capsule) 100 mg PO TID PRN PRN Reason: cough Stop: 05/30/21 13:59 Dextrose (Dextrose 50% 50 Ml Syringe) 25 - 50 ml IV UD PRN; Protocol PRN Reason: Hypoglycemia Protocol Stop: 05/29/21 14:38 Enoxaparin Sodium (Enoxaparin Inj 40 Mg/0.4 Ml Syr) 40 mg SQ Q24H GAYLA Stop: 05/29/21 14:38 Last Admin: 04/30/21 21:20 Dose: 40 mg Documented by: Glucagon (Glucagon For Inj 1 Mg Vial) 1 mg SQ UD PRN; Protocol PRN Reason: Hypoglycemia Protocol Stop: 05/29/21 14:38 Glucose (Glucose 10 Tabs/Tube) 4 - 8 tabs PO UD PRN; Protocol PRN Reason: Hypoglycemia Protocol Stop: 05/29/21 14:38 Glucose (Glucose 40% Gel 15 Gm Tube) 15 - 30 gm PO UD PRN; Protocol PRN Reason: Hypoglycemia Protocol Stop: 05/29/21 14:38 Guaifenesin/Codeine Phosphate (Guaifenesin/Codeine 100mg/10mg 5ml Udc) 5 ml PO Q6H PRN PRN Reason: Cough Stop: 05/30/21 21:51 Sodium Chloride (Nss 1000ml) 1,000 mls @ 125 mls/hr IV .Q8H GAYLA Stop: 05/29/21 14:38 Last Infusion: 04/30/21 10:33 Dose: Infused Documented by: Remdesivir 100 mg/ Sodium (Chloride) 250 mls @ 250 mls/hr IV Q24H [facility]; Protocol Stop: 05/03/21 20:59 Last Infusion: 04/30/21 22:20 Dose: Infused Documented by: Dexamethasone 6 mg/ Syringe 1.5 mls @ 1 mls/min IV DAILY GAYLA Stop: 05/09/21 23:34 Last Admin: 04/30/21 09:18 Dose: 1 mls/min Documented by: Insulin Aspart (Insulin Aspart Per Unit) 0 units SC ACHS [facility] Stop: 05/30/21 07:29 Last Admin: 04/30/21 22:54 Dose: Not Given Documented by: Insulin Human NPH (Insulin Human Nph) 35 units SC DAILY [facility]; Protocol Stop: 05/30/21 13:59 Last Admin: 04/30/21 14:29 Dose: 35 units Documented by: Miscellaneous (Carbohydrates For Hypoglycemia ) 15 - 30 gm PO UD PRN PRN Reason: Hypoglycemia Protocol Stop: 05/29/21 14:38 Miscellaneous Information (Pharmacy Glycemic Mgmt Consult) 1 ea N/A UD PRN PRN Reason: Consult Stop: 05/30/21 13:24 Sodium Chloride (Sodium Chloride 0.9% 10ml Flush) 30 ml IV Q24H [facility] Stop: 05/03/21 23:46 Last Admin: 04/30/21 23:06 Dose: 30 ml Documented by:
[2021-05-01] MEDS: dexAMETHasone 6 MG in SYRINGE 0 ML IV SCH (08:46)
[2021-05-01 09:01] LABS: Calcium 8.1 mg/dl (8.5-10.1); Creatinine Clr Calc Pharmacy 103.1 ml/min; Est GFR (African American) 91.2 ml/min; Est GFR (Non-African American) 78.7 ml/min; Magnesium 2.5 mg/dl (1.8-2.4); Potassium 4.6 mmol/L (3.5-5.1)
[2021-05-01] MEDS: INSULIN ASPART PER UNIT SC SCH ×4 (09:02→21:45)
[2021-05-01] MEDS: INSULIN HUMAN NPH SC SCH (09:03)
[2021-05-01 09:04] LABS: Phosphorus 3.3 mg/dl (2.5-4.9)
[2021-05-01] MEDS: ADVANCED PROBIOTIC 1250 MG CAPSULE PO SCH (16:32)
--- NOTE | 2021-05-01 19:27 | XRay Report ---
XR chest 1V portable HISTORY: 50 years-old Male incr. O2 req. Acute hypoxia COMPARISON: Chest radiograph and CTA chest 05/09/2021 TECHNIQUE: Portable AP view the chest FINDINGS: Cardiac silhouette is enlarged. Unchanged mediastinal contours. No pneumothorax or large pleural effu tera. Interstitial coarsening with ill-defined bilateral airspace opacities. There is slightly improv ed aeration of the left lung. Degenerative changes of the shoulders and spine. IMPRESSION: 1. Suggested viral pneumonia with mildly improved aeration of the left lung. 2. Cardiomegaly. ACT 112: Negative or not required by law. The above report was generated using voice recognition software. It may contain grammatical, syntax o r spelling errors. Electronically signed by: Estuardo Sellers M.D. 05/01/2021 7:25 PM
[2021-05-01] MEDS: REMDESIVIR 100 MG in SODIUM CHLORIDE 0.9% 230 ML IV SCH (20:17)
[2021-05-01] MEDS: ENOXAPARIN INJ 40 MG/0.4 ML SYR SQ SCH (20:20)
[2021-05-01] MEDS ORDERED: DOXYCYCLINE HYCLATE 100 MG CAP PO SCH (21:00)
[2021-05-01] MEDS: SODIUM CHLORIDE 0.9% 10ML FLUSH IV SCH (22:49)
[2021-05-01] MEDS ORDERED: FUROSEMIDE INJ 20 MG/2 ML VIAL IV ONE (23:13)
--- NOTE | 2021-05-02 06:58 | Hospitalist Progress Note ---
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 -In the ED, patient tested positive for COVID-19. He is not vaccinated. -On admission saturating well on room air, did not meet criteria for COVID-19 directed therapies - CTA chest negative for pulmonary embolism however shows signs of viral pneumonia. -Ambulation trial was attempted in ED however patient was too weak and fell back onto the bed. Also having intermittent hypotension. -Continue supportive care with IVF, PT/OT eval's -Given reports of diarrhea, check for C. difficile and stool PCR - negative -overnight pt was placed on 3L of O2, started on remdesivir and dexamethasone 05/01 - pt now on 5L O2, repeat CXR and procalcitonin - unremarkable, started empiric doxy (dc now) 05/02 - pt on 12L O2 this AM, start azithromycin for anti-inflammatory effect, will place HF-continue to closely monitor and support as needed (2) Hypotension: Plan: -Intermittent hypotension that improved after IVF on admission -Likely due to hypovolemia from nausea, vomiting, diarrhea, poor appetite -Hold antihypertensives, continued IVF overnight - fluid stopped, BP normal - lasix prn (3) Transaminitis: Plan: -T bili 0.6, AST 139, ALT 147, alk phos 211 -Likely due to COVID-19 -Patient denies abdominal pain -Continue to trend, if not improving, consider imaging LFTs trending down (4) DM type 2 (diabetes mellitus, type 2): Plan: - Current HgbA1c 8.4% - Hold home oral agents and utilize NovoLog per protocol while hospitalized - will need close outpt follow up (5) HTN (hypertension): Plan: -Holding antihypertensives (lisinopril) above (6) DVT prophylaxis: Plan: -SQ Lovenox Admission and Anticipated Discharge Date Admission Date: April 29, 2021 Subjective Pt seen in follow up of shortness of breath, cough, hypoxia 2/2 covid 19 infection Patient was on 5 L yesterday, then 8 L in the evening and 12 L this morning. Per nursing staff patient became more hypoxic after having a bowel movement. S tarted high flow this morning. Currently he is sitting up in bed, in no acute distress, about to eat lunch. Took off his oxygen, as he was saying it was bothering him when eating, and desaturated to 83%. He was put back on high flow. On remdesivir, dexamethasone, started azithro Denies any chest pain, nausea, v, abd. pain. Pt had loose stools before, now says BM is normal Review of Systems Review of Systems: All systems reviewed & are unremarkable except as noted in Subjective Physical Exam Physical Exam: General Appearance:Obese M no apparent distress Head:� normocephalic, Atraumatic Eyes:� normal inspection, EOMI Neck:� supple, Trachea midline Respiratory/Chest: Decreased breath sounds, No accessory muscle use Cardiovascular: S1, S2, No murmur Abdomen/GI:Soft, Non tender, obese, Bowel sounds present Extremities/Musculoskeletal:normal inspection, no edema Neurologic/Psych:AAOX3, no facial asymmetry, moves extremities Skin:� normal color, warm Results & Data Results & Data ([facility]) Vital Signs (Past 12 Hours) Vital Signs Temp Pulse Pulse Resp BP Pulse Ox 05/02/21 06:26 36.6 C 80 20 123/76 93 05/02/21 02:15 36.5 C 82 18 119/74 97 05/02/21 02:12 95 H 05/01/21 22:13 36.4 C L 92 H 18 136/80 91 05/01/21 20:26 36.6 C 95 H 18 129/77 95 05/01/21 20:07 93 H Laboratory Results 05/02/21 05/02/21 05/02/21 Range/Units 12:12 08:02 06:50 WBC (4.8-10.8) K/uL RBC (4.7-6.1) M/uL Hgb (14.0-18.0) g/dL Hct (42-52) % MCV (80-100) fL MCH (25-34) pg MCHC (32-36) g/dL RDW Std Deviation (36.4-46.3) fL RDW Coeff of Daryl (11.5-14.5) % Plt Count (130-400) K/uL MPV (7.4-10.4) fL Sodium 139 (136-145) mmol/L Potassium 4.3 (3.5-5.1) mmol/L Chloride 110 H (98-107) mmol/L Carbon Dioxide 22 (21-32) mmol/L Anion Gap 8.0 (3-11) BUN 37 H (7-18) mg/dl Creatinine 1.05 (0.6-1.4) mg/dl Est Cr Clr Drug Dosing 106.8 ml/min Est GFR ( Amer) 95.5 ml/min Est GFR (Non-Af Amer) 82.4 ml/min BUN/Creatinine Ratio 35.4 H (10-20) Glucose 116 H (70-99) mg/dl POC Glucose 199 H 117 H (70-99) mg/dl Calcium 8.2 L (8.5-10.1) mg/dl Phosphorus 3.2 (2.5-4.9) mg/dl Magnesium 2.4 (1.8-2.4) mg/dl AST 30 (15-37) U/L ALT 66 (12-78) Procalcitonin (0-0.5) ng/ml 05/02/21 05/01/21 05/01/21 Range/Units 06:50 20:23 17:47 WBC 14.57 H (4.8-10.8) K/uL RBC 4.50 L (4.7-6.1) M/uL Hgb 12.5 L (14.0-18.0) g/dL Hct 36.6 L (42-52) % MCV 81.3 (80-100) fL MCH 27.8 (25-34) pg MCHC 34.2 (32-36) g/dL RDW Std Deviation 40.1 (36.4-46.3) fL RDW Coeff of Daryl 13.4 (11.5-14.5) % Plt Count 227 (130-400) K/uL MPV 11.5 H (7.4-10.4) fL Sodium (136-145) mmol/L Potassium (3.5-5.1) mmol/L Chloride (98-107) mmol/L Carbon Dioxide (21-32) mmol/L Anion Gap (3-11) BUN (7-18) mg/dl Creatinine (0.6-1.4) mg/dl Est Cr Clr Drug Dosing ml/min Est GFR ( Amer) ml/min Est GFR (Non-Af Amer) ml/min BUN/Creatinine Ratio (10-20) Glucose (70-99) mg/dl POC Glucose 231 H 236 H (70-99) mg/dl Calcium (8.5-10.1) mg/dl Phosphorus (2.5-4.9) mg/dl Magnesium (1.8-2.4) mg/dl AST (15-37) U/L ALT (12-78) Procalcitonin (0-0.5) ng/ml 05/01/21 05/01/21 Range/Units 12:44 08:03 WBC (4.8-10.8) K/uL RBC (4.7-6.1) M/uL Hgb (14.0-18.0) g/dL Hct (42-52) % MCV (80-100) fL MCH (25-34) pg MCHC (32-36) g/dL RDW Std Deviation (36.4-46.3) fL RDW Coeff of Daryl (11.5-14.5) % Plt Count (130-400) K/uL MPV (7.4-10.4) fL Sodium (136-145) mmol/L Potassium (3.5-5.1) mmol/L Chloride (98-107) mmol/L Carbon Dioxide (21-32) mmol/L Anion Gap (3-11) BUN (7-18) mg/dl Creatinine (0.6-1.4) mg/dl Est Cr Clr Drug Dosing ml/min Est GFR ( Amer) ml/min Est GFR (Non-Af Amer) ml/min BUN/Creatinine Ratio (10-20) Glucose (70-99) mg/dl POC Glucose 252 H (70-99) mg/dl Calcium (8.5-10.1) mg/dl Phosphorus (2.5-4.9) mg/dl Magnesium (1.8-2.4) mg/dl AST (15-37) U/L ALT (12-78) Procalcitonin 0.22 (0-0.5) ng/ml Medications Administered Current Inpatient Medications Acetaminophen (Acetaminophen 325 Mg Tab) 650 mg PO Q4H PRN PRN Reason: Pain or Fever Stop: 05/30/21 06:52 Azithromycin (Azithromycin 250 Mg Tab) 500 mg PO QAM GAYLA Stop: 05/09/21 08:59 Benzonatate (Benzonatate 100 Mg Capsule) 100 mg PO TID PRN PRN Reason: cough Stop: 05/30/21 13:59 Last Admin: 05/01/21 08:47 Dose: 100 mg Documented by: Dextrose (Dextrose 50% 50 Ml Syringe) 25 - 50 ml IV UD PRN; Protocol PRN Reason: Hypoglycemia Protocol Stop: 05/29/21 14:38 Doxycycline Hyclate (Doxycycline Hyclate 100 Mg Cap) 100 mg PO BID [facility] Stop: 05/08/21 20:59 Last Admin: 05/01/21 20:20 Dose: 100 mg Documented by: Enoxaparin Sodium (Enoxaparin Inj 40 Mg/0.4 Ml Syr) 40 mg SQ Q12H GAYLA Stop: 06/01/21 07:59 Glucagon (Glucagon For Inj 1 Mg Vial) 1 mg SQ UD PRN; Protocol PRN Reason: Hypoglycemia Protocol Stop: 05/29/21 14:38 Glucose (Glucose 10 Tabs/Tube) 4 - 8 tabs PO UD PRN; Protocol PRN Reason: Hypoglycemia Protocol Stop: 05/29/21 14:38 Glucose (Glucose 40% Gel 15 Gm Tube) 15 - 30 gm PO UD PRN; Protocol PRN Reason: Hypoglycemia Protocol Stop: 05/29/21 14:38 Guaifenesin/Codeine Phosphate (Guaifenesin/Codeine 100mg/10mg 5ml Udc) 5 ml PO Q6H PRN PRN Reason: Cough Stop: 05/30/21 21:51 Sodium Chloride (Nss 1000ml) 1,000 mls @ 125 mls/hr IV .Q8H [facility] Stop: 05/29/21 14:38 Last Infusion: 04/30/21 10:33 Dose: Infused Documented by: Remdesivir 100 mg/ Sodium (Chloride) 250 mls @ 250 mls/hr IV Q24H [facility]; Protocol Stop: 05/03/21 20:59 Last Infusion: 05/01/21 22:49 Dose: Infused Documented by: Dexamethasone 6 mg/ Syringe 1.5 mls @ 1 mls/min IV DAILY [facility] Stop: 05/09/21 23:34 Last Admin: 05/01/21 08:46 Dose: 1 mls/min Documented by: Insulin Aspart (Insulin Aspart Per Unit) 0 units SC ACHS [facility] Stop: 05/30/21 07:29 Last Admin: 05/01/21 21:45 Dose: 8 units Documented by: Insulin Human NPH (Insulin Human Nph) 40 units SC DAILY [facility]; Protocol Stop: 06/01/21 08:59 Lactobacillus Acidoph/Casei/Rhamnos (Advanced Probiotic 1250 Mg Capsule) 2 cap PO DAILY [facility] Stop: 05/31/21 14:14 Last Admin: 05/01/21 16:32 Dose: 2 cap Documented by: Miscellaneous (Carbohydrates For Hypoglycemia ) 15 - 30 gm PO UD PRN PRN Reason: Hypoglycemia Protocol Stop: 05/29/21 14:38 Miscellaneous Information (Pharmacy Glycemic Mgmt Consult) 1 ea N/A UD PRN PRN Reason: Consult Stop: 05/30/21 13:24 Sodium Chloride (Sodium Chloride 0.9% 10ml Flush) 30 ml IV Q24H [facility] Stop: 05/03/21 23:46 Last Admin: 05/01/21 22:49 Dose: 30 ml Documented by:
[2021-05-02 07:04] LABS: Hematocrit (blood only) 36.6 % (42-52); Hemoglobin 12.5 g/dL (14.0-18.0); Mean Corpuscular Hemoglobin 27.8 pg (25-34); Mean Corpuscular Hgb Conc 34.2 g/dL (32-36); Mean Corpuscular Volume 81.3 fL (80-100); Mean Platelet Volume 11.5 fL (7.4-10.4); Platelet Count 227 K/uL (130-400); RDW Coefficient of Variation 13.4 % (11.5-14.5); RDW Standard Deviation 40.1 fL (36.4-46.3); White Blood Count 14.57 K/uL (4.8-10.8)
[2021-05-02 07:41] LABS: BUN Creatinine Ratio 35.4 (10-20); Calcium 8.2 mg/dl (8.5-10.1); Creatinine Clr Calc Pharmacy 106.8 ml/min; Est GFR (African American) 95.5 ml/min; Est GFR (Non-African American) 82.4 ml/min; Magnesium 2.4 mg/dl (1.8-2.4); Phosphorus 3.2 mg/dl (2.5-4.9); Potassium 4.3 mmol/L (3.5-5.1)
[2021-05-02] MEDS: AZITHROMYCIN 250 MG TAB PO SCH (08:55)
[2021-05-02] MEDS: dexAMETHasone 6 MG in SYRINGE 0 ML IV SCH (08:55)
[2021-05-02] MEDS: ADVANCED PROBIOTIC 1250 MG CAPSULE PO SCH (08:57)
[2021-05-02] MEDS: ENOXAPARIN INJ 40 MG/0.4 ML SYR SQ SCH ×2 (08:58→20:52)
[2021-05-02] MEDS: INSULIN ASPART PER UNIT SC SCH ×4 (09:28→21:19)
[2021-05-02] MEDS: INSULIN HUMAN NPH SC SCH (09:28)
--- NOTE | 2021-05-02 11:27 | Pharmacy Report ---
Pharmacy Glycemic Short Note 2 - Date of Service May 02, 2021 - Glycemic Short BSG Results (Last 24 hours): 05/01/21 05/01/21 05/01/21 12:44 17:47 20:23 Glucose POC Glucose 252 H 236 H 231 H 05/02/21 05/02/21 06:50 08:02 Glucose 116 H POC Glucose 117 H OUTPATIENT ANTIDIABETIC REGIMEN: * Metformin 1g PO BID * Glipizide 5mg BID * HbA1c = 8.4% (04/30/21) ASSESSMENT: 05/02: * Jeremi received 83 units of insulin yesterday (35 units NPH + 48 units Novolog) * BSGs were above goal: [phone] mg/dL * Continues on 6 mg of IV Dexamethasone daily * Fasting BSG well controlled at 117 mg/dL * Tightened Novolog parameters to help with postprandial hyperglycemia caused by steroids. * NPH was increased as well 04/30: * 50 year old male, type 2 diabetic, with COVID-19 on IV steroids, hyperglycemic * No basal on board, start NPH now * Tighten CF and CR and goal range and adjust to goal BSG PLAN FOR INPATIENT GLYCEMIC CONTROL: * Hold outpatient oral diabetes medications * Basal insulin - increased * NPH 40 units SC daily w/ dexamethasone * Bolus insulin - tightened * NovoLog per scale ACHS or Q6hrs while NPO * Goal Range: Low 110 mg/dL - High 140 mg/dL * Correction Factor: 10 mg/dL/unit * Nutritional / Prandial insulin per carb ratio of 1 unit per 3 grams CHO consumed PLAN FOR DISCHARGE: * HbA1c of 8.4% is above the goal of less than 7% for this patient based on his age and comorbidities. * Consider addition of GLP1 RA (i.e. Victoza) or SGLT2i (i.e. Jardiance). * If not covered by insurance or patient unwilling, recommend increasing Glipizide by 5 mg per week until dose of 10 mg PO BIDM is reached.
[2021-05-02] MEDS ORDERED: FUROSEMIDE INJ 20 MG/2 ML VIAL IV ONE (12:40)
[2021-05-02] MEDS: REMDESIVIR 100 MG in SODIUM CHLORIDE 0.9% 230 ML IV SCH (20:53)
[2021-05-02] MEDS: SODIUM CHLORIDE 0.9% 10ML FLUSH IV SCH (22:52)
--- NOTE | 2021-05-03 08:05 | Hospitalist Progress Note ---
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 -In the ED, patient tested positive for COVID-19. He is not vaccinated. -On admission saturating well on RA, did not meet criteria for COVID-19 directed therapies - CTA chest negative for pulmonary embolism however shows signs of viral pneumonia. -Ambulation trial was attempted in ED however patient was too weak and fell back onto the bed. Also having intermittent hypotension. -Continue supportive care with IVF, PT/OT eval's -Given reports of diarrhea, check for C. difficile and stool PCR - negative -overnight pt was placed on 3L of O2, started on remdesivir and dexamethasone 05/01 - pt now on 5L O2, repeat CXR and procalcitonin - unremarkable, started empiric doxy (dc now) 05/02 - pt on 12L O2 this AM, start azithromycin for anti-inflammatory effect, will place HF-continue to closely monitor and support as needed 05/03 - pt off HF, on NC 10-15L, comfortable, cont. current regimen (2) Hypotension: Plan: -Intermittent hypotension that improved after IVF on admission -Likely due to hypovolemia from nausea, vomiting, diarrhea, poor appetite -Hold antihypertensives, continued IVF overnight - fluid stopped, BP normal - lasix prn (3) Transaminitis: Plan: -T bili 0.6, AST 139, ALT 147, alk phos 211 -Likely due to COVID-19 -Patient denies abdominal pain -Continue to trend, if not improving, consider imaging LFTs normalized (4) DM type 2 (diabetes mellitus, type 2): Plan: - Current HgbA1c 8.4% - Hold home oral agents and utilize NovoLog per protocol while hospitalized - will need close outpt follow up (5) HTN (hypertension): Plan: -Holding antihypertensives (lisinopril) above (6) DVT prophylaxis: Plan: -SQ Lovenox Admission and Anticipated Discharge Date Admission Date: April 29, 2021 Subjective Pt seen in follow up of shortness of breath, cough, hypoxia 2/2 covid 19 infection Pt was on HF yesterday now back to NC 12-15L Currently he is laying in bed, in no acute distress On remdesivir, dexamethasone, started azithro yesterday as well Denies any chest pain, nausea, v, abd. pain. Pt had loose stools before, now says BM is normal Review of Systems Review of Systems: All systems reviewed & are unremarkable except as noted in Subjective Physical Exam Physical Exam: General Appearance:Obese M no apparent distress Head:� normocephalic, Atraumatic Eyes:� normal inspection, EOMI Neck:� supple, Trachea midline Respiratory/Chest: Decreased breath sounds (but seems mildly improved from previous exam), No accessory muscle use, no wheezing Cardiovascular: S1, S2, No murmur Abdomen/GI:Soft, Non tender, obese, Bowel sounds present Extremities/Musculoskeletal:normal inspection, no edema Neurologic/Psych:AAOX3, no facial asymmetry, moves extremities Skin:� normal color, warm Results & Data Results & Data ([facility]) Vital Signs (Past 12 Hours) Vital Signs Temp Pulse Pulse Resp BP Pulse Ox 05/03/21 05:45 79 05/03/21 03:32 36.6 C 72 18 124/74 95 05/02/21 20:42 36.5 C 82 18 121/74 97 Laboratory Results 05/03/21 05/03/21 05/03/21 Range/Units 08:19 08:19 08:13 WBC 12.88 H (4.8-10.8) K/uL RBC 4.68 L (4.7-6.1) M/uL Hgb 13.2 L (14.0-18.0) g/dL Hct 39.2 L (42-52) % MCV 83.8 (80-100) fL MCH 28.2 (25-34) pg MCHC 33.7 (32-36) g/dL RDW Std Deviation 41.7 (36.4-46.3) fL RDW Coeff of Daryl 13.7 (11.5-14.5) % Plt Count 262 (130-400) K/uL MPV 11.7 H (7.4-10.4) fL Sodium 140 (136-145) mmol/L Potassium 4.6 (3.5-5.1) mmol/L Chloride 109 H (98-107) mmol/L Carbon Dioxide 23 (21-32) mmol/L Anion Gap 8.0 (3-11) BUN 36 H (7-18) mg/dl Creatinine 1.14 (0.6-1.4) mg/dl Est Cr Clr Drug Dosing 98.2 ml/min Est GFR ( Amer) 86.4 ml/min Est GFR (Non-Af Amer) 74.6 ml/min BUN/Creatinine Ratio 31.1 H (10-20) Glucose 141 H (70-99) mg/dl POC Glucose 128 H (70-99) mg/dl Calcium 8.3 L (8.5-10.1) mg/dl Phosphorus 3.7 (2.5-4.9) mg/dl Magnesium 2.6 H (1.8-2.4) mg/dl AST 33 (15-37) U/L ALT 66 (12-78) 05/02/21 05/02/21 05/02/21 Range/Units 20:50 17:11 12:12 WBC (4.8-10.8) K/uL RBC (4.7-6.1) M/uL Hgb (14.0-18.0) g/dL Hct (42-52) % MCV (80-100) fL MCH (25-34) pg MCHC (32-36) g/dL RDW Std Deviation (36.4-46.3) fL RDW Coeff of Daryl (11.5-14.5) % Plt Count (130-400) K/uL MPV (7.4-10.4) fL Sodium (136-145) mmol/L Potassium (3.5-5.1) mmol/L Chloride (98-107) mmol/L Carbon Dioxide (21-32) mmol/L Anion Gap (3-11) BUN (7-18) mg/dl Creatinine (0.6-1.4) mg/dl Est Cr Clr Drug Dosing ml/min Est GFR ( Amer) ml/min Est GFR (Non-Af Amer) ml/min BUN/Creatinine Ratio (10-20) Glucose (70-99) mg/dl POC Glucose 177 H 132 H 199 H (70-99) mg/dl Calcium (8.5-10.1) mg/dl Phosphorus (2.5-4.9) mg/dl Magnesium (1.8-2.4) mg/dl AST (15-37) U/L ALT (12-78) Medications Administered Current Inpatient Medications Acetaminophen (Acetaminophen 325 Mg Tab) 650 mg PO Q4H PRN PRN Reason: Pain or Fever Stop: 05/30/21 06:52 Azithromycin (Azithromycin 250 Mg Tab) 500 mg PO QAM GAYLA Stop: 05/09/21 08:59 Last Admin: 05/02/21 08:55 Dose: 500 mg Documented by: Benzonatate (Benzonatate 100 Mg Capsule) 100 mg PO TID PRN PRN Reason: cough Stop: 05/30/21 13:59 Last Admin: 05/01/21 08:47 Dose: 100 mg Documented by: Dextrose (Dextrose 50% 50 Ml Syringe) 25 - 50 ml IV UD PRN; Protocol PRN Reason: Hypoglycemia Protocol Stop: 05/29/21 14:38 Doxycycline Hyclate (Doxycycline Hyclate 100 Mg Cap) 100 mg PO BID [facility] Stop: 05/08/21 20:59 Last Admin: 05/01/21 20:20 Dose: 100 mg Documented by: Enoxaparin Sodium (Enoxaparin Inj 40 Mg/0.4 Ml Syr) 40 mg SQ Q12H [facility] Stop: 06/01/21 07:59 Last Admin: 05/02/21 20:52 Dose: 40 mg Documented by: Glucagon (Glucagon For Inj 1 Mg Vial) 1 mg SQ UD PRN; Protocol PRN Reason: Hypoglycemia Protocol Stop: 05/29/21 14:38 Glucose (Glucose 10 Tabs/Tube) 4 - 8 tabs PO UD PRN; Protocol PRN Reason: Hypoglycemia Protocol Stop: 05/29/21 14:38 Glucose (Glucose 40% Gel 15 Gm Tube) 15 - 30 gm PO UD PRN; Protocol PRN Reason: Hypoglycemia Protocol Stop: 05/29/21 14:38 Guaifenesin/Codeine Phosphate (Guaifenesin/Codeine 100mg/10mg 5ml Udc) 5 ml PO Q6H PRN PRN Reason: Cough Stop: 05/30/21 21:51 Remdesivir 100 mg/ Sodium (Chloride) 250 mls @ 250 mls/hr IV Q24H [facility]; Protocol Stop: 05/03/21 20:59 Last Infusion: 05/02/21 22:00 Dose: Infused Documented by: Dexamethasone 6 mg/ Syringe 1.5 mls @ 1 mls/min IV DAILY [facility] Stop: 05/09/21 23:34 Last Admin: 05/02/21 08:55 Dose: 1 mls/min Documented by: Insulin Aspart (Insulin Aspart Per Unit) 0 units SC ACHS [facility] Stop: 05/30/21 07:29 Last Admin: 05/02/21 21:19 Dose: 4 units Documented by: Insulin Human NPH (Insulin Human Nph) 40 units SC DAILY G[facility]; Protocol Stop: 06/01/21 08:59 Last Admin: 05/02/21 09:28 Dose: 40 units Documented by: Lactobacillus Acidoph/Casei/Rhamnos (Advanced Probiotic 1250 Mg Capsule) 2 cap PO DAILY [facility] Stop: 05/31/21 14:14 Last Admin: 05/02/21 08:57 Dose: 2 cap Documented by: Miscellaneous (Carbohydrates For Hypoglycemia ) 15 - 30 gm PO UD PRN PRN Reason: Hypoglycemia Protocol Stop: 05/29/21 14:38 Miscellaneous Information (Pharmacy Glycemic Mgmt Consult) 1 ea N/A UD PRN PRN Reason: Consult Stop: 05/30/21 13:24 Sodium Chloride (Sodium Chloride 0.9% 10ml Flush) 30 ml IV Q24H [facility] Stop: 05/03/21 23:46 Last Admin: 05/02/21 22:52 Dose: 30 ml Documented by:
[2021-05-03 08:38] LABS: Hematocrit (blood only) 39.2 % (42-52); Hemoglobin 13.2 g/dL (14.0-18.0); Mean Corpuscular Hemoglobin 28.2 pg (25-34); Mean Corpuscular Hgb Conc 33.7 g/dL (32-36); Mean Corpuscular Volume 83.8 fL (80-100); Mean Platelet Volume 11.7 fL (7.4-10.4); Platelet Count 262 K/uL (130-400); RDW Coefficient of Variation 13.7 % (11.5-14.5); RDW Standard Deviation 41.7 fL (36.4-46.3); Red Blood Count 4.68 M/uL (4.7-6.1); White Blood Count 12.88 K/uL (4.8-10.8)
[2021-05-03] MEDS: dexAMETHasone 6 MG in SYRINGE 0 ML IV SCH (08:53)
[2021-05-03] MEDS: AZITHROMYCIN 250 MG TAB PO SCH (08:54)
[2021-05-03] MEDS: ENOXAPARIN INJ 40 MG/0.4 ML SYR SQ SCH ×2 (08:54→20:28)
[2021-05-03] MEDS: ADVANCED PROBIOTIC 1250 MG CAPSULE PO SCH (08:54)
[2021-05-03] MEDS: INSULIN ASPART PER UNIT SC SCH ×4 (09:00→21:04)
[2021-05-03 09:05] LABS: BUN Creatinine Ratio 31.1 (10-20); Calcium 8.3 mg/dl (8.5-10.1); Creatinine Clr Calc Pharmacy 98.2 ml/min; Est GFR (African American) 86.4 ml/min; Est GFR (Non-African American) 74.6 ml/min; Magnesium 2.6 mg/dl (1.8-2.4); Phosphorus 3.7 mg/dl (2.5-4.9); Potassium 4.6 mmol/L (3.5-5.1)
[2021-05-03] MEDS: INSULIN HUMAN NPH SC SCH (09:27)
[2021-05-03] MEDS ORDERED: FUROSEMIDE INJ 20 MG/2 ML VIAL IV ONE (11:02)
[2021-05-03] MEDS: REMDESIVIR 100 MG in SODIUM CHLORIDE 0.9% 230 ML IV SCH (20:39)
[2021-05-03] MEDS: SODIUM CHLORIDE 0.9% 10ML FLUSH IV SCH (21:53)
--- NOTE | 2021-05-04 07:30 | Hospitalist Progress Note ---
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 -In the ED, patient tested positive for COVID-19. He is not vaccinated. -On admission saturating well on RA, did not meet criteria for COVID-19 directed therapies - CTA chest negative for pulmonary embolism however shows signs of viral pneumonia. -Ambulation trial was attempted in ED however patient was too weak and fell back onto the bed. Also having intermittent hypotension. -Continue supportive care with IVF, PT/OT eval's -Given reports of diarrhea, check for C. difficile and stool PCR - negative -overnight pt was placed on 3L of O2, started on remdesivir and dexamethasone 05/01 - pt now on 5L O2, repeat CXR and procalcitonin - unremarkable, started empiric doxy (dc now) 05/02 - pt on 12L O2 this AM, start azithromycin for anti-inflammatory effect, will place HF-continue to closely monitor and support as needed 05/03 - pt off HF, on NC 10-15L, comfortable, cont. current regimen Finished 5 day course of remdesivir on 05/03 Cont. dexamethasone, azithromycin, also on azithro 05/04 - on HF NC 12L sat. in high 90s% this AM, able to wean down to 9 L, currently satting 92% - cont. lasix prn (2) Hypotension: Plan: -Intermittent hypotension that improved after IVF on admission -Likely due to hypovolemia from nausea, vomiting, diarrhea, poor appetite -Hold antihypertensives, continued IVF overnight - fluid stopped, BP normal - lasix prn (3) Transaminitis: Plan: -T bili 0.6, AST 139, ALT 147, alk phos 211 -Likely due to COVID-19 -Patient denies abdominal pain -Continue to trend, if not improving, consider imaging LFTs normalized (4) DM type 2 (diabetes mellitus, type 2): Plan: - Current HgbA1c 8.4% - Hold home oral agents and utilize NovoLog per protocol while hospitalized - will need close outpt follow up (5) HTN (hypertension): Plan: -Holding antihypertensives (lisinopril) above (6) DVT prophylaxis: Plan: -SQ Lovenox Admission and Anticipated Discharge Date Admission Date: April 29, 2021 Subjective Pt seen in follow up of shortness of breath, cough, hypoxia 2/2 covid 19 infection Pt was on HF NC 12L this AM satting in high 90s, able to wean down now to 9 L, satting 92% Currently he is laying in bed, in no acute distress Finished remdesivir, cont. dexamethasone, on azithro as well Denies any chest pain, nausea, v, abd. pain. Pt had loose stools before, now says BM is normal Review of Systems Review of Systems: All systems reviewed & are unremarkable except as noted in Subjective Physical Exam Physical Exam: General Appearance:Obese M in NAD, comfortable on NC Head:� normocephalic, Atraumatic Eyes:� normal inspection, EOMI Neck:� supple, Trachea midline Respiratory/Chest: Decreased breath sounds (but seems improved from previous exam), No accessory muscle use, no wheezing Cardiovascular: S1, S2, No murmur Abdomen/GI: Soft, Non tender, obese, Bowel sounds present Extremities/Musculoskeletal:normal inspection, no edema Neurologic/Psych:AAOX3, no facial asymmetry, moves extremities Skin:� normal color, warm Results & Data Results & Data ([facility]) Vital Signs (Past 12 Hours) Vital Signs Temp Pulse Pulse Resp BP Pulse Ox 05/04/21 07:15 75 05/04/21 03:29 37.3 C 72 20 125/79 96 05/04/21 00:47 70 05/03/21 23:49 37.2 C 76 18 134/83 92 05/03/21 20:05 36.6 C 79 18 125/81 93 Laboratory Results 05/04/21 05/04/21 05/04/21 Range/Units 07:54 07:54 07:47 WBC 13.60 H (4.8-10.8) K/uL RBC 4.85 (4.7-6.1) M/uL Hgb 13.4 L (14.0-18.0) g/dL Hct 39.9 L (42-52) % MCV 82.3 (80-100) fL MCH 27.6 (25-34) pg MCHC 33.6 (32-36) g/dL RDW Std Deviation 40.7 (36.4-46.3) fL RDW Coeff of Daryl 13.4 (11.5-14.5) % Plt Count 254 (130-400) K/uL MPV 11.3 H (7.4-10.4) fL Sodium 138 (136-145) mmol/L Potassium 4.3 (3.5-5.1) mmol/L Chloride 108 H (98-107) mmol/L Carbon Dioxide 22 (21-32) mmol/L Anion Gap 8.0 (3-11) BUN 32 H (7-18) mg/dl Creatinine 0.99 (0.6-1.4) mg/dl Est Cr Clr Drug Dosing 112.5 ml/min Est GFR ( Amer) 102.5 ml/min Est GFR (Non-Af Amer) 88.4 ml/min BUN/Creatinine Ratio 32.4 H (10-20) Glucose 73 (70-99) mg/dl POC Glucose 71 (70-99) mg/dl Calcium 8.3 L (8.5-10.1) mg/dl Phosphorus 3.6 (2.5-4.9) mg/dl Magnesium 2.5 H (1.8-2.4) mg/dl AST 31 (15-37) U/L ALT 67 (12-78) 05/03/21 05/03/21 05/03/21 Range/Units 20:04 17:10 12:08 WBC (4.8-10.8) K/uL RBC (4.7-6.1) M/uL Hgb (14.0-18.0) g/dL Hct (42-52) % MCV (80-100) fL MCH (25-34) pg MCHC (32-36) g/dL RDW Std Deviation (36.4-46.3) fL RDW Coeff of Daryl (11.5-14.5) % Plt Count (130-400) K/uL MPV (7.4-10.4) fL Sodium (136-145) mmol/L Potassium (3.5-5.1) mmol/L Chloride (98-107) mmol/L Carbon Dioxide (21-32) mmol/L Anion Gap (3-11) BUN (7-18) mg/dl Creatinine (0.6-1.4) mg/dl Est Cr Clr Drug Dosing ml/min Est GFR ( Amer) ml/min Est GFR (Non-Af Amer) ml/min BUN/Creatinine Ratio (10-20) Glucose (70-99) mg/dl POC Glucose 83 104 H 216 H (70-99) mg/dl Calcium (8.5-10.1) mg/dl Phosphorus (2.5-4.9) mg/dl Magnesium (1.8-2.4) mg/dl AST (15-37) U/L ALT (12-78) 05/03/21 Range/Units 08:19 WBC (4.8-10.8) K/uL RBC (4.7-6.1) M/uL Hgb (14.0-18.0) g/dL Hct (42-52) % MCV (80-100) fL MCH (25-34) pg MCHC (32-36) g/dL RDW Std Deviation (36.4-46.3) fL RDW Coeff of Daryl (11.5-14.5) % Plt Count (130-400) K/uL MPV (7.4-10.4) fL Sodium 140 (136-145) mmol/L Potassium 4.6 (3.5-5.1) mmol/L Chloride 109 H (98-107) mmol/L Carbon Dioxide 23 (21-32) mmol/L Anion Gap 8.0 (3-11) BUN 36 H (7-18) mg/dl Creatinine 1.14 (0.6-1.4) mg/dl Est Cr Clr Drug Dosing 98.2 ml/min Est GFR ( Amer) 86.4 ml/min Est GFR (Non-Af Amer) 74.6 ml/min BUN/Creatinine Ratio 31.1 H (10-20) Glucose 141 H (70-99) mg/dl POC Glucose (70-99) mg/dl Calcium 8.3 L (8.5-10.1) mg/dl Phosphorus 3.7 (2.5-4.9) mg/dl Magnesium 2.6 H (1.8-2.4) mg/dl AST 33 (15-37) U/L ALT 66 (12-78) Medications Administered Current Inpatient Medications Acetaminophen (Acetaminophen 325 Mg Tab) 650 mg PO Q4H PRN PRN Reason: Pain or Fever Stop: 05/30/21 06:52 Azithromycin (Azithromycin 250 Mg Tab) 500 mg PO QAM GAYLA Stop: 05/09/21 08:59 Last Admin: 05/03/21 08:54 Dose: 500 mg Documented by: Benzonatate (Benzonatate 100 Mg Capsule) 100 mg PO TID PRN PRN Reason: cough Stop: 05/30/21 13:59 Last Admin: 05/01/21 08:47 Dose: 100 mg Documented by: Dextrose (Dextrose 50% 50 Ml Syringe) 25 - 50 ml IV UD PRN; Protocol PRN Reason: Hypoglycemia Protocol Stop: 05/29/21 14:38 Doxycycline Hyclate (Doxycycline Hyclate 100 Mg Cap) 100 mg PO BID GAYLA Stop: 05/08/21 20:59 Last Admin: 05/01/21 20:20 Dose: 100 mg Documented by: Enoxaparin Sodium (Enoxaparin Inj 40 Mg/0.4 Ml Syr) 40 mg SQ Q12H GAYLA Stop: 06/01/21 07:59 Last Admin: 05/03/21 20:28 Dose: 40 mg Documented by: Glucagon (Glucagon For Inj 1 Mg Vial) 1 mg SQ UD PRN; Protocol PRN Reason: Hypoglycemia Protocol Stop: 05/29/21 14:38 Glucose (Glucose 10 Tabs/Tube) 4 - 8 tabs PO UD PRN; Protocol PRN Reason: Hypoglycemia Protocol Stop: 05/29/21 14:38 Glucose (Glucose 40% Gel 15 Gm Tube) 15 - 30 gm PO UD PRN; Protocol PRN Reason: Hypoglycemia Protocol Stop: 05/29/21 14:38 Guaifenesin/Codeine Phosphate (Guaifenesin/Codeine 100mg/10mg 5ml Udc) 5 ml PO Q6H PRN PRN Reason: Cough Stop: 05/30/21 21:51 Dexamethasone 6 mg/ Syringe 1.5 mls @ 1 mls/min IV DAILY GAYLA Stop: 05/09/21 23:34 Last Admin: 05/03/21 08:53 Dose: 1 mls/min Documented by: Insulin Aspart (Insulin Aspart Per Unit) 0 units SC ACHS GAYLA Stop: 05/30/21 07:29 Last Admin: 05/03/21 21:04 Dose: Not Given Documented by: Insulin Human NPH (Insulin Human Nph) 40 units SC DAILY GAYLA; Protocol Stop: 06/01/21 08:59 Last Admin: 05/03/21 09:27 Dose: 40 units Documented by: Lactobacillus Acidoph/Casei/Rhamnos (Advanced Probiotic 1250 Mg Capsule) 2 cap PO DAILY GAYLA Stop: 05/31/21 14:14 Last Admin: 05/03/21 08:54 Dose: 2 cap Documented by: Miscellaneous (Carbohydrates For Hypoglycemia ) 15 - 30 gm PO UD PRN PRN Reason: Hypoglycemia Protocol Stop: 05/29/21 14:38 Miscellaneous Information (Pharmacy Glycemic Mgmt Consult) 1 ea N/A UD PRN PRN Reason: Consult Stop: 05/30/21 13:24
[2021-05-04] MEDS: dexAMETHasone 6 MG in SYRINGE 0 ML IV SCH (08:06)
[2021-05-04 08:07] LABS: Hematocrit (blood only) 39.9 % (42-52); Hemoglobin 13.4 g/dL (14.0-18.0); Mean Corpuscular Hemoglobin 27.6 pg (25-34); Mean Corpuscular Hgb Conc 33.6 g/dL (32-36); Mean Corpuscular Volume 82.3 fL (80-100); Mean Platelet Volume 11.3 fL (7.4-10.4); Platelet Count 254 K/uL (130-400); RDW Coefficient of Variation 13.4 % (11.5-14.5); RDW Standard Deviation 40.7 fL (36.4-46.3); Red Blood Count 4.85 M/uL (4.7-6.1)
[2021-05-04] MEDS: AZITHROMYCIN 250 MG TAB PO SCH (08:07)
[2021-05-04] MEDS: ADVANCED PROBIOTIC 1250 MG CAPSULE PO SCH (08:07)
[2021-05-04] MEDS: ENOXAPARIN INJ 40 MG/0.4 ML SYR SQ SCH ×2 (08:07→20:56)
[2021-05-04] MEDS: INSULIN HUMAN NPH SC SCH (08:26)
[2021-05-04] MEDS: INSULIN ASPART PER UNIT SC SCH ×4 (08:26→21:27)
--- NOTE | 2021-05-04 08:26 | Pharmacy Report ---
Pharmacy Glycemic Short Note 2 - Date of Service May 04, 2021 - Glycemic Short BSG Results (Last 24 hours): 05/03/21 05/03/21 05/03/21 08:19 12:08 17:10 Glucose 141 H POC Glucose 216 H 104 H 05/03/21 05/04/21 20:04 07:47 Glucose POC Glucose 83 71 OUTPATIENT ANTIDIABETIC REGIMEN: * Metformin 1g PO BID * Glipizide 5mg BID * HbA1c = 8.4% (04/30/21) ASSESSMENT: 05/04: * BSGs reasonably well-controlled yesterday sans lunchtime BSG * Received 102 units of insulin, 40 units of NPH and 62 units of Novolog * Fasting BSG of 71 mg/dL this morning - will decrease NPH today and slightly loosen Novolog parameters this evening * Continues on dexamethasone 6 mg IV daily 05/02: * Jeremi received 83 units of insulin yesterday (35 units NPH + 48 units Novolog) * BSGs were above goal: [phone] mg/dL * Continues on 6 mg of IV Dexamethasone daily * Fasting BSG well controlled at 117 mg/dL * Tightened Novolog parameters to help with postprandial hyperglycemia caused by steroids. * NPH was increased as well 04/30: * 50 year old male, type 2 diabetic, with COVID-19 on IV steroids, hyperglycemic * No basal on board, start NPH now * Tighten CF and CR and goal range and adjust to goal BSG PLAN FOR INPATIENT GLYCEMIC CONTROL: * Hold outpatient oral diabetes medications * Basal insulin - decrease ~20% * NPH 32 units SC daily w/ dexamethasone * Bolus insulin - loosen * NovoLog per scale ACHS or Q6hrs while NPO * Goal Range: Low 110 mg/dL - High 140 mg/dL * Correction Factor: 10 mg/dL/unit at 0730, 12 mg/dL/unit at 1130, 1630, and 2100 * Nutritional / Prandial insulin per carb ratio of 1 unit per 3 grams CHO consumed at 0730, 1 unit per 4 grams CHO at 1130, 1630, and 2100 PLAN FOR DISCHARGE: * HbA1c of 8.4% is above the goal of less than 7% for this patient based on his age and comorbidities. * Consider addition of GLP1 RA (i.e. Victoza) or SGLT2i (i.e. Jardiance). * If not covered by insurance or patient unwilling, recommend increasing Glipizide by 5 mg per week until dose of 10 mg PO BIDM is reached.
[2021-05-04 08:40] LABS: BUN Creatinine Ratio 32.4 (10-20); Calcium 8.3 mg/dl (8.5-10.1); Creatinine Clr Calc Pharmacy 112.5 ml/min; Est GFR (African American) 102.5 ml/min; Est GFR (Non-African American) 88.4 ml/min; Magnesium 2.5 mg/dl (1.8-2.4)
[2021-05-04 08:41] LABS: Phosphorus 3.6 mg/dl (2.5-4.9)
[2021-05-04 08:42] LABS: Potassium 4.3 mmol/L (3.5-5.1)
[2021-05-04] MEDS ORDERED: FUROSEMIDE INJ 20 MG/2 ML VIAL IV ONE (08:58)
--- NOTE | 2021-05-05 07:27 | Hospitalist Progress Note ---
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 -In the ED, patient tested positive for COVID-19. He is not vaccinated. -On admission saturating well on RA, did not meet criteria for COVID-19 directed therapies - CTA chest negative for pulmonary embolism however shows signs of viral pneumonia. -Ambulation trial was attempted in ED however patient was too weak and fell back onto the bed. Also having intermittent hypotension. -Continue supportive care with IVF, PT/OT eval's -Given reports of diarrhea, check for C. difficile and stool PCR - negative -overnight pt was placed on 3L of O2, started on remdesivir and dexamethasone 05/01 - pt now on 5L O2, repeat CXR and procalcitonin - unremarkable, started empiric doxy (dc now) 05/02 - pt on 12L O2 this AM, start azithromycin for anti-inflammatory effect, will place HF-continue to closely monitor and support as needed 05/03 - pt off HF, on NC 10-15L, comfortable, cont. current regimen Finished 5 day course of remdesivir on 05/03 Cont. dexamethasone, azithromycin, also on azithro 05/04 - on HF NC 12L sat. in high 90s% this AM, able to wean down to 9 L, currently satting 92% - cont. lasix prn 05/05 - cont. to be on 9L of O2 - finished empiric Abx NSVT - 05/05 AM 11 beat VT noted on tele - pt asymptomatic - electrolytes wnl - echo ordered (2) Hypotension: Plan: -Intermittent hypotension that improved after IVF on admission -Likely due to hypovolemia from nausea, vomiting, diarrhea, poor appetite -Held antihypertensives initially, continued IVF overnight - fluid stopped, BP normal - lasix prn - restart home lisinopril (3) Transaminitis: Plan: -T bili 0.6, AST 139, ALT 147, alk phos 211 -Likely due to COVID-19 -Patient denies abdominal pain -Continue to trend, if not improving, consider imaging LFTs normalized (4) DM type 2 (diabetes mellitus, type 2): Plan: - Current HgbA1c 8.4% - Hold home oral agents and utilize NovoLog per protocol while hospitalized - will need close outpt follow up (5) HTN (hypertension): Plan: -Held antihypertensives (lisinopril), as above - resume now (6) DVT prophylaxis: Plan: -SQ Lovenox Admission and Anticipated Discharge Date Admission Date: April 29, 2021 Subjective Pt seen in follow up of shortness of breath, cough, hypoxia 2/2 covid 19 infection This morning, at 5:30 AM, patient had 11 beat of V. tach, patient was asymptomatic Electrolytes normal this morning Pt is on 9 L, satting high 90s. However at 5:30 documented about 90% Currently he is laying in bed, in no acute distress Finished remdesivir, cont. dexamethasone Denies any chest pain, nausea, v, abd. pain. Pt had loose stools before, now says BM is normal Overall patient reports that he is feeling fine Review of Systems Review of Systems: All systems reviewed & are unremarkable except as noted in Subjective Physical Exam Physical Exam: General Appearance:Obese M in NAD, comfortable on NC Head:� normocephalic, Atraumatic Eyes:� normal inspection, EOMI Neck:� supple, Trachea midline Respiratory/Chest: Decreased breath sounds, No accessory muscle use, no wheezing, no crackles Cardiovascular: S1, S2, No murmur Abdomen/GI: Soft, Non tender, obese, Bowel sounds present Extremities/Musculoskeletal:normal inspection, no edema Neurologic/Psych:AAOX3, no facial asymmetry, moves extremities Skin:� normal color, warm Results & Data Results & Data ([facility]) Vital Signs (Past 12 Hours) Vital Signs Temp Pulse Pulse Resp BP Pulse Ox 05/05/21 07:12 83 05/05/21 03:18 36.5 C 80 18 118/63 95 05/04/21 22:56 37.2 C 78 18 129/80 96 05/04/21 22:17 72 05/04/21 20:37 37.2 C 76 18 137/83 98 Laboratory Results 05/05/21 05/05/21 05/05/21 Range/Units 07:52 07:46 07:46 WBC 13.26 H (4.8-10.8) K/uL RBC 5.32 (4.7-6.1) M/uL Hgb 15.0 (14.0-18.0) g/dL Hct 44.3 (42-52) % MCV 83.3 (80-100) fL MCH 28.2 (25-34) pg MCHC 33.9 (32-36) g/dL RDW Std Deviation 40.4 (36.4-46.3) fL RDW Coeff of Daryl 13.4 (11.5-14.5) % Plt Count 316 (130-400) K/uL MPV 11.2 H (7.4-10.4) fL Sodium 134 L (136-145) mmol/L Potassium 4.4 (3.5-5.1) mmol/L Chloride 102 (98-107) mmol/L Carbon Dioxide 27 (21-32) mmol/L Anion Gap 5.0 (3-11) BUN 30 H (7-18) mg/dl Creatinine 1.20 (0.6-1.4) mg/dl Est Cr Clr Drug Dosing 92.8 ml/min Est GFR ( Amer) 81.2 ml/min Est GFR (Non-Af Amer) 70.1 ml/min BUN/Creatinine Ratio 24.8 H (10-20) Glucose 105 H (70-99) mg/dl POC Glucose 111 H (70-99) mg/dl Calcium 8.4 L (8.5-10.1) mg/dl Phosphorus 4.2 (2.5-4.9) mg/dl Magnesium 2.5 H (1.8-2.4) mg/dl 05/04/21 05/04/21 05/04/21 Range/Units 20:26 16:52 11:51 WBC (4.8-10.8) K/uL RBC (4.7-6.1) M/uL Hgb (14.0-18.0) g/dL Hct (42-52) % MCV (80-100) fL MCH (25-34) pg MCHC (32-36) g/dL RDW Std Deviation (36.4-46.3) fL RDW Coeff of Daryl (11.5-14.5) % Plt Count (130-400) K/uL MPV (7.4-10.4) fL Sodium (136-145) mmol/L Potassium (3.5-5.1) mmol/L Chloride (98-107) mmol/L Carbon Dioxide (21-32) mmol/L Anion Gap (3-11) BUN (7-18) mg/dl Creatinine (0.6-1.4) mg/dl Est Cr Clr Drug Dosing ml/min Est GFR ( Amer) ml/min Est GFR (Non-Af Amer) ml/min BUN/Creatinine Ratio (10-20) Glucose (70-99) mg/dl POC Glucose 197 H 112 H 130 H (70-99) mg/dl Calcium (8.5-10.1) mg/dl Phosphorus (2.5-4.9) mg/dl Magnesium (1.8-2.4) mg/dl Medications Administered Current Inpatient Medications Acetaminophen (Acetaminophen 325 Mg Tab) 650 mg PO Q4H PRN PRN Reason: Pain or Fever Stop: 05/30/21 06:52 Azithromycin (Azithromycin 250 Mg Tab) 500 mg PO QAM GAYLA Stop: 05/09/21 08:59 Last Admin: 05/04/21 08:07 Dose: 500 mg Documented by: Benzonatate (Benzonatate 100 Mg Capsule) 100 mg PO TID PRN PRN Reason: cough Stop: 05/30/21 13:59 Last Admin: 05/01/21 08:47 Dose: 100 mg Documented by: Dextrose (Dextrose 50% 50 Ml Syringe) 25 - 50 ml IV UD PRN; Protocol PRN Reason: Hypoglycemia Protocol Stop: 05/29/21 14:38 Doxycycline Hyclate (Doxycycline Hyclate 100 Mg Cap) 100 mg PO BID [facility] Stop: 05/08/21 20:59 Last Admin: 05/01/21 20:20 Dose: 100 mg Documented by: Enoxaparin Sodium (Enoxaparin Inj 40 Mg/0.4 Ml Syr) 40 mg SQ Q12H GAYLA Stop: 06/01/21 07:59 Last Admin: 05/04/21 20:56 Dose: 40 mg Documented by: Glucagon (Glucagon For Inj 1 Mg Vial) 1 mg SQ UD PRN; Protocol PRN Reason: Hypoglycemia Protocol Stop: 05/29/21 14:38 Glucose (Glucose 10 Tabs/Tube) 4 - 8 tabs PO UD PRN; Protocol PRN Reason: Hypoglycemia Protocol Stop: 05/29/21 14:38 Glucose (Glucose 40% Gel 15 Gm Tube) 15 - 30 gm PO UD PRN; Protocol PRN Reason: Hypoglycemia Protocol Stop: 05/29/21 14:38 Guaifenesin/Codeine Phosphate (Guaifenesin/Codeine 100mg/10mg 5ml Udc) 5 ml PO Q6H PRN PRN Reason: Cough Stop: 05/30/21 21:51 Dexamethasone 6 mg/ Syringe 1.5 mls @ 1 mls/min IV DAILY GAYLA Stop: 05/09/21 23:34 Last Admin: 05/04/21 08:06 Dose: 1 mls/min Documented by: Insulin Aspart (Insulin Aspart Per Unit) 0 units SC 0730 GAYLA Stop: 05/30/21 07:29 Insulin Aspart (Insulin Aspart Per Unit) 0 units SC 1130,1630,2100 [facility] Stop: 06/03/21 16:29 Last Admin: 05/04/21 21:27 Dose: 5 units Documented by: Insulin Human NPH (Insulin Human Nph) 32 units SC DAILY [facility]; Protocol Stop: 06/01/21 08:59 Last Admin: 05/04/21 08:26 Dose: 32 units Documented by: Lactobacillus Acidoph/Casei/Rhamnos (Advanced Probiotic 1250 Mg Capsule) 2 cap PO DAILY GAYLA Stop: 05/31/21 14:14 Last Admin: 05/04/21 08:07 Dose: 2 cap Documented by: Miscellaneous (Carbohydrates For Hypoglycemia ) 15 - 30 gm PO UD PRN PRN Reason: Hypoglycemia Protocol Stop: 05/29/21 14:38 Miscellaneous Information (Pharmacy Glycemic Mgmt Consult) 1 ea N/A UD PRN PRN Reason: Consult Stop: 05/30/21 13:24
[2021-05-05 08:28] LABS: Hematocrit (blood only) 44.3 % (42-52); Mean Corpuscular Hemoglobin 28.2 pg (25-34); Mean Corpuscular Hgb Conc 33.9 g/dL (32-36); Mean Corpuscular Volume 83.3 fL (80-100); Mean Platelet Volume 11.2 fL (7.4-10.4); Platelet Count 316 K/uL (130-400); RDW Coefficient of Variation 13.4 % (11.5-14.5); RDW Standard Deviation 40.4 fL (36.4-46.3); Red Blood Count 5.32 M/uL (4.7-6.1); White Blood Count 13.26 K/uL (4.8-10.8)
[2021-05-05] MEDS: ENOXAPARIN INJ 40 MG/0.4 ML SYR SQ SCH ×2 (08:34→20:56)
[2021-05-05] MEDS: dexAMETHasone 6 MG in SYRINGE 0 ML IV SCH (08:34)
[2021-05-05] MEDS: AZITHROMYCIN 250 MG TAB PO SCH (08:35)
[2021-05-05] MEDS: ADVANCED PROBIOTIC 1250 MG CAPSULE PO SCH (08:35)
[2021-05-05 08:50] LABS: Potassium 4.4 mmol/L (3.5-5.1)
[2021-05-05 08:54] LABS: BUN Creatinine Ratio 24.8 (10-20); Calcium 8.4 mg/dl (8.5-10.1); Creatinine Clr Calc Pharmacy 92.8 ml/min; Est GFR (African American) 81.2 ml/min; Est GFR (Non-African American) 70.1 ml/min; Magnesium 2.5 mg/dl (1.8-2.4)
[2021-05-05 08:58] LABS: Phosphorus 4.2 mg/dl (2.5-4.9)
[2021-05-05] MEDS: INSULIN ASPART PER UNIT SC SCH ×4 (09:05→21:05)
[2021-05-05] MEDS: INSULIN HUMAN NPH SC SCH (09:06)
--- NOTE | 2021-05-05 10:52 | XRay Report ---
XR chest 1V portable HISTORY: 50 years-old Male follow up, new arrythmia acute cardiac arrhythmia with shortness of breat h COMPARISON: Chest radiograph 05/01/2021, CTA chest 04/29/2021 TECHNIQUE: Portable AP view of the chest FINDINGS: Unchanged enlargement of the cardiac silhouette. Interstitial coarsening with patchy bilateral airspa ce opacities, mildly improved from prior. No pneumothorax or large pleural effusion. Lungs are hypoin flated. Degenerative changes of the shoulders and spine. IMPRESSION: 1. Hypoinflation with mild improvement of the bilateral pulmonary opacities compatible with viral pne umonia. 2. Cardiomegaly. ACT 112: Negative or not required by law. The above report was generated using voice recognition software. It may contain grammatical, syntax o r spelling errors. Electronically signed by: Estuardo Sellers M.D. 05/05/2021 10:51 AM
[2021-05-06 07:47] LABS: Hematocrit (blood only) 41.2 % (42-52); Mean Corpuscular Hemoglobin 27.9 pg (25-34); Mean Corpuscular Volume 82.2 fL (80-100); Mean Platelet Volume 10.4 fL (7.4-10.4); Platelet Count 308 K/uL (130-400); RDW Coefficient of Variation 13.5 % (11.5-14.5); RDW Standard Deviation 40.6 fL (36.4-46.3); Red Blood Count 5.01 M/uL (4.7-6.1); White Blood Count 14.58 K/uL (4.8-10.8)
[2021-05-06 08:24] LABS: BUN Creatinine Ratio 27.3 (10-20); Calcium 8.5 mg/dl (8.5-10.1); Creatinine Clr Calc Pharmacy 98.5 ml/min; Est GFR (African American) 87.4 ml/min; Est GFR (Non-African American) 75.4 ml/min; Magnesium 2.3 mg/dl (1.8-2.4); Phosphorus 4.5 mg/dl (2.5-4.9); Potassium 4.5 mmol/L (3.5-5.1)
--- NOTE | 2021-05-06 08:26 | Pharmacy Report ---
Pharmacy Glycemic Short Note 2 - Date of Service May 06, 2021 - Glycemic Short BSG Results (Last 24 hours): 05/05/21 05/05/21 05/05/21 07:46 12:08 17:17 Glucose 105 H POC Glucose 144 H 135 H 05/05/21 05/06/21 05/06/21 20:10 07:16 07:50 Glucose 112 H POC Glucose 150 H 106 H OUTPATIENT ANTIDIABETIC REGIMEN: * Metformin 1g PO BID * Glipizide 5mg BID * HbA1c = 8.4% (04/30/21) ASSESSMENT: 05/06: * BSGs remain well-controlled, 111, 144, 135, and 150 mg/dL yesterday * Received 32 units of NPH and 42 units of prandial/correctional Novolog * Continues on dexamethasone 6 mg IV daily - will continue to cover with 32 units of NPH * Do not anticipate need for any changes today 05/04: * BSGs reasonably well-controlled yesterday sans lunchtime BSG * Received 102 units of insulin, 40 units of NPH and 62 units of Novolog * Fasting BSG of 71 mg/dL this morning - will decrease NPH today and slightly loosen Novolog parameters this evening * Continues on dexamethasone 6 mg IV daily 05/02: * Jeremi received 83 units of insulin yesterday (35 units NPH + 48 units Novolog) * BSGs were above goal: [phone] mg/dL * Continues on 6 mg of IV Dexamethasone daily * Fasting BSG well controlled at 117 mg/dL * Tightened Novolog parameters to help with postprandial hyperglycemia caused by steroids. * NPH was increased as well 04/30: * 50 year old male, type 2 diabetic, with COVID-19 on IV steroids, hyperglycemic * No basal on board, start NPH now * Tighten CF and CR and goal range and adjust to goal BSG PLAN FOR INPATIENT GLYCEMIC CONTROL: * Hold outpatient oral diabetes medications * Basal insulin - continue * NPH 32 units SC daily w/ dexamethasone * Bolus insulin - continue * NovoLog per scale ACHS or Q6hrs while NPO * Goal Range: Low 110 mg/dL - High 140 mg/dL * Correction Factor: 10 mg/dL/unit at 0730, 12 mg/dL/unit at 1130, 1630, and 2100 * Nutritional / Prandial insulin per carb ratio of 1 unit per 3 grams CHO consumed at 0730, 1 unit per 4 grams CHO at 1130, 1630, and 2100 PLAN FOR DISCHARGE: * HbA1c of 8.4% is above the goal of less than 7% for this patient based on his age and comorbidities. * Consider addition of GLP1 RA (i.e. Victoza) or SGLT2i (i.e. Jardiance). * If not covered by insurance or patient unwilling, recommend increasing Gli pizide by 5 mg per week until dose of 10 mg PO BIDM is reached.
[2021-05-06] MEDS: ADVANCED PROBIOTIC 1250 MG CAPSULE PO SCH (08:44)
[2021-05-06] MEDS: ENOXAPARIN INJ 40 MG/0.4 ML SYR SQ SCH ×2 (08:45→21:11)
[2021-05-06] MEDS: dexAMETHasone 6 MG in SYRINGE 0 ML IV SCH (08:45)
[2021-05-06] MEDS: INSULIN ASPART PER UNIT SC SCH ×4 (08:50→21:17)
[2021-05-06] MEDS: INSULIN HUMAN NPH SC SCH (08:51)
[2021-05-06] MEDS ORDERED: lisinopril 40 MG TAB PO SCH (09:00)
[2021-05-06] MEDS: METOPROLOL TARTRATE 25 MG TAB PO SCH ×2 (10:13→21:10)
--- NOTE | 2021-05-06 16:45 | Hospitalist Progress Note ---
Date of Service May 06, 2021 Assessment & Plan (1) COVID-19: Plan: Patient is a 50yr male who presents with very poor appetite, nausea, vomiting, diarrhea and developed lightheadedness with standing, ambulatory dysfunction and was found to have COVID. COVID-19 infection Multifocal pneumonia Acute respiratory failure with hypoxia -CTA chest negative for pulmonary embolism however shows signs of viral pneumonia. Blood Cx: Negative Stool Studies Negative Completed remdesivir course Continue dexamethasone Wean off of supplemental oxygen as able Normal procalcitonin May need 2 step prior to discharge NSVT On 05/05 AM 11 beat VT noted on tele Asymptomatic ECHO: Left ventricle systolic function is mildly reduced. EF 40 to 45%. Mild global hypokinesis of left ventricle. Grade 1 diastolic dysfunction. Started on low dose Metoprolol (2) Hypotension: Plan: Intermittent hypotension Decreased lisinopril to 20 mg daily Orthostatic metoprolol Monitor BP (3) Transaminitis: Plan: Likely due to COVID-19 Denies abdominal pain Improved (4) DM type 2 (diabetes mellitus, type 2): Plan: Current HgbA1c 8.4% Continue NovoLog per protocol while hospitalized (5) HTN (hypertension): Plan: Continue current meds (6) DVT prophylaxis: Plan: SQ Lovenox Admission and Anticipated Discharge Date Admission Date: April 29, 2021 Subjective Patient is seen and examined at bedside States feeling well Offers no complaints today Saturating well on 2 liters supplemental oxygen Review of Systems Review of Systems: All systems reviewed & are unremarkable except as noted in Subjective Physical Exam Physical Exam: Physical Exam: Vitals signs as noted above General Appearance:Obese, no apparent distress Head: normocephalic, Atraumatic Eyes: normal inspection, EOMI Neck: supple, Trachea midline Respiratory/Chest: Decreased breath sounds, CTA Cardiovascular: S1, S2, No murmur Abdomen/GI:Soft, Non tender, Bowel sounds present Extremities/Musculoskeletal:normal inspection, no edema Neurologic/Psych:AAOX3, grossly no focal neurological deficits Skin: normal color, warm Results & Data Results & Data ([facility]) Vital Signs (Past 12 Hours) Vital Signs Temp Pulse Pulse Resp BP Pulse Ox 05/06/21 16:17 37.4 C 74 20 108/69 98 05/06/21 15:48 77 05/06/21 11:58 37.5 C 84 18 105/71 94 05/06/21 08:39 37.2 C 104 H 18 120/79 96 Laboratory Results Short CBC 05/06/21 Range/Units 07:16 WBC 14.58 H (4.8-10.8) K/uL Hgb 14.0 (14.0-18.0) g/dL Hct 41.2 L (42-52) % Plt Count 308 (130-400) K/uL BMP 05/06/21 07:16 Sodium 135 L Potassium 4.5 Chloride 102 Carbon Dioxide 25 BUN 31 H Creatinine 1.13 Glucose 112 H Calcium 8.5
[2021-05-07 06:48] LABS: Hematocrit (blood only) 40.8 % (42-52); Hemoglobin 13.8 g/dL (14.0-18.0); Mean Corpuscular Hemoglobin 27.7 pg (25-34); Mean Corpuscular Hgb Conc 33.8 g/dL (32-36); Mean Corpuscular Volume 81.9 fL (80-100); Mean Platelet Volume 10.4 fL (7.4-10.4); Platelet Count 330 K/uL (130-400); RDW Coefficient of Variation 13.3 % (11.5-14.5); RDW Standard Deviation 40.2 fL (36.4-46.3); Red Blood Count 4.98 M/uL (4.7-6.1); White Blood Count 14.31 K/uL (4.8-10.8)
[2021-05-07 07:19] LABS: BUN Creatinine Ratio 29.4 (10-20); Calcium 8.4 mg/dl (8.5-10.1); Creatinine Clr Calc Pharmacy 105.3 ml/min; Est GFR (African American) 95.5 ml/min; Est GFR (Non-African American) 82.4 ml/min; Magnesium 2.5 mg/dl (1.8-2.4); Potassium 4.5 mmol/L (3.5-5.1)
[2021-05-07] MEDS: ENOXAPARIN INJ 40 MG/0.4 ML SYR SQ SCH (07:52)
[2021-05-07] MEDS: INSULIN ASPART PER UNIT SC SCH ×2 (08:31→12:07)
[2021-05-07] MEDS: INSULIN HUMAN NPH SC SCH (08:33)
[2021-05-07] MEDS: dexAMETHasone 6 MG in SYRINGE 0 ML IV SCH (08:47)
[2021-05-07] MEDS: ADVANCED PROBIOTIC 1250 MG CAPSULE PO SCH (08:49)
[2021-05-07] MEDS ORDERED: lisinopril 20 MG TAB PO SCH (09:00)
[2021-05-07] MEDS ORDERED: METOPROLOL TARTRATE 25 MG TAB PO SCH (09:00)
--- NOTE | 2021-05-07 11:29 | Hospitalist Progress Note ---
Date of Service May 07, 2021 Assessment & Plan (1) COVID-19: Plan: Patient is a 50yr male who presents with very poor appetite, nausea, vomiting, diarrhea and developed lightheadedness with standing, ambulatory dysfunction and was found to have COVID. COVID-19 infection Multifocal pneumonia Acute respiratory failure with hypoxia -CTA chest negative for pulmonary embolism however shows signs of viral pneumonia. Blood Cx: Negative Stool Studies Negative Completed remdesivir course Continue dexamethasone Normal procalcitonin Weaned off of oxygen Saturating well on room air 2 step: Needs 3 Liters with activity Advised patient to stay till portable oxygen is arranged Advised to follow up with PCP in 1 week upon discharge NSVT On 05/05 AM 11 beat VT noted on tele Asymptomatic ECHO: Left ventricle systolic function is mildly reduced. EF 40 to 45%. Mild global hypokinesis of left ventricle. Grade 1 diastolic dysfunction. Continue Metoprolol 12.5mg BID (2) Hypotension: Plan: Intermittent hypotension Decreased lisinopril to 10 mg daily due to relatively low BP Also on metoprolol Monitor BP (3) Transaminitis: Plan: Likely due to COVID-19 Denies abdominal pain Improved (4) DM type 2 (diabetes mellitus, type 2): Plan: Current HgbA1c 8.4% Continue NovoLog per protocol while hospitalized (5) HTN (hypertension): Plan: Continue current meds (6) DVT prophylaxis: Plan: SQ Lovenox Admission and Anticipated Discharge Date Admission Date: April 29, 2021 Subjective Patient is seen and examined at bedside Saturating well on room air 2 step: needs 3 liters with activity No new complaints Denies chest pain, dyspnea, dizziness, nausea, abd pain Eager to get discharged Review of Systems Review of Systems: All systems reviewed & are unremarkable except as noted in Subjective Physical Exam Physical Exam: Physical Exam: Vitals signs as noted above General Appearance:Obese, no apparent distress Head: normocephalic, Atraumatic Eyes: normal inspection, EOMI Neck: supple, Trachea midline Respiratory/Chest: Decreased breath sounds, CTA Cardiovascular: S1, S2, No murmur Abdomen/GI:Soft, Non tender, Bowel sounds present Extremities/Musculoskeletal:normal inspection, no edema Neurologic/Psych:AAOX3, grossly no focal neurological deficits Skin: normal color, warm Results & Data Results & Data ([facility]) Vital Signs (Past 12 Hours) Vital Signs Temp Pulse Pulse Pulse Pulse Pulse Pulse 12/16/21 10:46 107 H 114 H 103 H 83 05/07/21 08:22 36.7 C 84 05/07/21 04:51 76 05/07/21 03:00 36.5 C 75 Resp Resp Resp Resp Resp BP Pulse Ox 05/07/21 10:46 18 20 18 18 05/07/21 08:22 18 110/71 91 05/07/21 04:51 05/07/21 03:00 18 100/64 93 Pulse Ox Pulse Ox Pulse Ox Pulse Ox 05/07/21 10:46 91 86 L 91 93 05/07/21 08:22 05/07/21 04:51 05/07/21 03:00 Laboratory Results Short CBC 05/07/21 Range/Units 06:32 WBC 14.31 H (4.8-10.8) K/uL Hgb 13.8 L (14.0-18.0) g/dL Hct 40.8 L (42-52) % Plt Count 330 (130-400) K/uL BMP 05/07/21 06:32 Sodium 136 Potassium 4.5 Chloride 105 Carbon Dioxide 24 BUN 31 H Creatinine 1.05 Glucose 124 H Calcium 8.4 L
--- NOTE | 2021-05-07 13:43 | Discharge Summary ---
Date of Service May 07, 2021 Admission HPI Per Admitting Provider 50-year-old male with PMH DM type II, HTN, dyslipidemia, and other problems to below who presents to the ED for evaluation of lightheadedness, nausea, diarrhea. 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 Reports getting sick about 3 to 4 days ago and has been staying in his truck at the truck stop. Patient reports severe nausea with a very poor appetite. He is also had vomiting and diarrhea. Denies hematemesis, coffee- ground emesis, bright red bleeding per rectum, dark tarry stools. No abdominal pain. Patient has a low-grade fever in the ED however is unaware of any fevers prior to coming to the hospital. Patient reports a minimal nonproductive cough. No shortness of breath. Reports feeling very lightheaded and dizzy with standing however no syncopal event. No chest pain. Denies urinary symptoms. In the ED, patient tested positive for COVID-19. He is saturating well on room air. Labs show a mild transaminitis. CTA chest negative for pulmonary embolism. Patient was given IV Tylenol, IV Zofran, IVF. Admission Exam Per Admitting Provider Physical Exam: Vitals signs as noted above General Appearance:Obese, no apparent distress Head:� normocephalic, Atraumatic Eyes:� normal inspection, EOMI Neck:� supple, Trachea midline Respiratory/Chest: Decreased breath sounds, B/L crackles, No accessory muscle use Cardiovascular: S1, S2, No murmur Abdomen/GI:Soft, Non tender, Bowel sounds present Extremities/Musculoskeletal:normal inspection, no edema Neurologic/Psych:AAOX3, grossly no focal neurological deficits Skin:� normal color, warm Principal Diagnosis COVID-19 infection Multifocal pneumonia Acute respiratory failure with hypoxia Nonsustained ventricular tachycardia Discharge Data Allergies Allergy/AdvReac Type Severity Reaction Status Date / Time No Known Allergies Allergy Verified 04/29/21 18:06 Consultations 04/29/21 11:28 ED Decision to Admit Stat Ordered Studies 04/29/21 09:34 CT angio chest PE protocol Stat Hospital Course (1) COVID-19: Patient is a 50yr male who presents with very poor appetite, nausea, vomiting, diarrhea and developed lightheadedness with standing, ambulatory dysfunction and was found to have COVID. COVID-19 infection Multifocal pneumonia Acute respiratory failure with hypoxia -CTA chest negative for pulmonary embolism however shows signs of viral pneumonia. Blood Cx: Negative Stool Studies Negative Completed remdesivir course Continue dexamethasone Normal procalcitonin Weaned off of oxygen Saturating well on room air 2 step: Needs 3 Liters with activity Advised patient to stay till portable oxygen is arranged Advised to follow up with PCP in 1 week upon discharge NSVT On 12/14 AM 11 beat VT noted on tele Asymptomatic ECHO: Left ventricle systolic function is mildly reduced. EF 40 to 45%. Mild global hypokinesis of left ventricle. Grade 1 diastolic dysfunction. Continue Metoprolol 12.5mg BID (2) Hypotension: Intermittent hypotension Decreased lisinopril to 10 mg daily due to relatively low BP Also on metoprolol Monitor BP (3) Transaminitis: Likely due to COVID-19 Denies abdominal pain Improved (4) DM type 2 (diabetes mellitus, type 2): Current HgbA1c 8.4% Continue NovoLog per protocol while hospitalized (5) HTN (hypertension): Continue current meds (6) DVT prophylaxis: SQ Lovenox Total Time Total Time Spent Total Time Spent (In Minutes): 38 minutes Discharge Plan Discharge Items Patient Disposition: Home - Self-Care Reason For Visit: COVID Discharge Diagnosis: COVID-19 infection Multifocal pneumonia Acute respiratory failure with hypoxia Nonsustained ventricular tachycardia Activity: Per Instructions section Exercise/Sports: Wait until after follow-up appointment Non-emergency contact: Primary Care Provider Call non-emergency contact if: you have any medication questions, your symptoms worsen, your pain is concerning for you and you have a fever Follow-up/Referrals: Tomas Buitrago, [Primary Care Provider] - Diet: Carb Consistent or DM2 and Heart Healthy Addtl Attending Provider Instructions: Follow-up with your primary care physician in 1 week as advised ---Use oxygen 2 L via nasal cannula with activity as advised Seek immediate medical attention if your symptoms reoccur or worsen Please take all medications as instructed on discharge list below. Please call if you have any questions or problems. You can reach a [facility] hospitalist on duty at [facility] 24 hours a day by calling [phone] Home Isolation COVID-19 Instructions The following information about Home Isolation is from the CDC Website: https://www.cdc.gov/coronavirus/2019-ncov/hcp/dnhvtqom-kffzaav-mavpek.html Stay home except to get medical care People who are mildly ill with COVID-19 are able to isolate at home during their illness. You should restrict activities outside your home, except for getting medical care. Do not go to work, school, or public areas. Avoid using public transportation, ride-sharing, or taxis. Separate yourself from other people and animals in your home People: As much as possible, you should stay in a specific room and away from other people in your home. Also, you should use a separate bathroom, if available. Animals: You should restrict contact with pets and other animals while you are sick with COVID-19, just like you would around other people. Although there have not been reports of pets or other animals becoming sick with COVID-19, it is still recommended that people sick with COVID-19 limit contact with animals until more information is known about the virus. When possible, have another member of your household care for your animals while you are sick. If you are sick with COVID-19, avoid contact with your pet, including petting, snuggling, being kissed or licked, and sharing food. If you must care for your pet or be around animals while you are sick, wash your hands before and after you interact with pets and wear a face mask. Call ahead before visiting your doctor If you have a medical appointment, call the healthcare provider and tell them that you have or may have COVID-19. This will help the healthcare provider�s office take steps to keep other people from getting infected or exposed. Wear a face mask You should wear a face mask when you are around other people (e.g., sharing a room or vehicle) or pets and before you enter a healthcare provider�s office. If you are not able to wear a face mask (for example, because it causes trouble breathing), then people who live with you should not stay in the same room with you, or they should wear a face mask if they enter your room. Cover your coughs and sneezes Cover your mouth and nose with a tissue when you cough or sneeze. Throw used tissues in a lined trash can. Immediately wash your hands with soap and water for at least 20 seconds or, if soap and water are not available, clean your hands with an alcohol-based hand shoe parts molder that contains at least 60% alcohol. Clean your hands often Wash your hands often with soap and water for at least 20 seconds, especially after blowing your nose, coughing, or sneezing; going to the bathroom; and before eating or preparing food. If soap and water are not readily available, use an alcohol-based hand shoe parts molder with at least 60% alcohol, covering all surfaces of your hands and rubbing them together until they feel dry. Soap and water are the best option if hands are visibly dirty. Avoid touching your eyes, nose, and mouth with unwashed hands. Avoid sharing personal household items You should not share dishes, drinking glasses, cups, eating utensils, towels, or bedding with other people or pets in your home. After using these items, they should be washed thoroughly with soap and water. Clean all �high-touch� surfaces everyday High touch surfaces include counters, tabletops, doorknobs, bathroom fixtures, toilets, phones, keyboards, tablets, and bedside tables. Also, clean any surfaces that may have blood, stool, or body fluids on them. Use a household cleaning spray or wipe, according to the label instructions. Labels contain instructions for safe and effective use of the cleaning product including preca utions you should take when applying the product, such as wearing gloves and making sure you have good ventilation during use of the product. Monitor your symptoms Seek prompt medical attention if your illness is worsening (e.g., difficulty breathing).�Before�seeking care, call your healthcare provider and tell them that you have, or are being evaluated for, COVID-19. Put on a face mask before you enter the facility. These steps will help the healthcare provider�s office to keep other people in the office or waiting room from getting infected or exposed. Ask your healthcare provider to call the local or state health department. Persons who are placed under active monitoring or facilitated self- monitoring should follow instructions provided by their local health department or occupational health professionals, as appropriate. When working with your local health department check their available hours. If you have a medical emergency and need to call 911, notify the dispatch personnel that you have, or are being evaluated for COVID-19. If possible, put on a face mask before emergency medical services arrive. Discontinuing home isolation Patients with confirmed COVID-19 should remain under home isolation precautions until the risk of secondary transmission to others is thought to be low. The decision to discontinue home isolation precautions should be made on a [id number] basis, in consultation with healthcare providers and state and local health departments. Coronavirus disease 2019 (COVID-19) is a virus that causes a respiratory illness. It is caused by a coronavirus called 2019 novel coronavirus (2019- nCoV). There are many types of coronavirus. Coronaviruses are a very common cause of bronchitis. They may sometimes cause lung infection(pneumonia). Symptoms can range from mild to severe respiratory illness. These viruses are also foundin some animals. COVID-19 was first found in people in [facility], in late 2018. In 2020, several cases of COVID-19 have been confirmed in the [place] Public health officials are working to find the source. How the virus spreads is not yet fully known. It may be spread through droplets of fluid that a person coughs or sneezes into the air. It may be spread if you touch a surface with virus on it, such as a handle or object, and then touch your mouth. What are the symptoms of COVID-19? Some people have no symptoms or mild symptoms. Symptoms may appear 2 to 14 days after contact with the virus. Symptoms can include: � Fever � Coughing � Trouble breathing What are possible complications from COVID-19? In many cases, this virus can cause infection (pneumonia) in both lungs. In some cases, this can cause . How is COVID-19 diagnosed? Your healthcare provider will ask about your symptoms. He or she will also ask about your recent travel and contact with sick people. Testing for the virus is only done through the CDC. If yourhealthcare provider thinks you may have COVID- 19, he or she will work with your local health department and the CDC on testing. Follow all instructions from your healthcare provider. COVID-19 is diagnosed by: � Nasal and throat swab. A cotton-tipped swab is wiped inside your nose or throat. This is done to check for viruses in your nasal mucus. � Sputum culture. A small sample of mucus coughed from your lungs (sputum) is collected if you have a cough. It is checked for the virus. How is COVID-19 treated? There is currently no medicine to treat the virus. Treatment is done to help your body while it fights the virus. This is known as supportive care. Supportive care may include: � Pain medicine. These include acetaminophen and ibuprofen. They are used to help ease pain and reduce fever. � Bed rest. This helps your body fight the illness. For severe illness, you may need to stay in the hospital. Care during severe illness may include: � IV (intravenous) fluids.These are given through a vein to help keep your body hydrated. � Oxygen. Supplemental oxygen or ventilation with a breathing machine (ventilator) may be given. This is done to keep enough oxygen in your body. Are you at risk for COVID-19? If you�ve been to a place where people have been sick with this virus, you are at risk for infection. You are at risk if you: � Recently traveled to an affected area � Had contact with a sick person who recently traveled to this area � Had contact with a person who was diagnosed with COVID-19 How can COVID-19 be prevented? There is no vaccine yet. The best prevention is to not have contact with the virus. The CDC advises that people should not travel to areas where there are COVID-19 outbreaks right now for any reason that is not urgent. To help prevent spreading the infection, wash your hands often, or use an alcohol-basedhand shoe parts molder. If you are in an area with COVID-19: � Wash your hands often. Or use an alcohol-based hand shoe parts molder often. � Only touch your eyes, nose, or mouth with clean hands. � Don�t have contact with people who are sick. � Follow local instructions about being in public. For example, you may be told to not use public transport for a period of time. � Stay away from markets that have live or animals. � Wash your hands after touching any animals. Don't touch animals that may be sick. � Don�t share eating or drinking tools with sick people. � Don�t kiss someone who is sick. � Clean surfaces often with disinfectant. If you were in an area with COVID-19 in the last 14 days: � Call your healthcare provider. He or she can talk with local health staff to see what action may be needed. � Follow all instructions from your provider. � Take your temperature every morning and evening for at least 14 days. This is to check for fever. Keep a record of the readings. � Keep watch for symptoms of the virus. Tell your provider right away if you have symptoms. If you were in an area with COVID-19 and have a fever or other symptoms: � Don�t panic. Keep in mind that other illnesses can cause similar symptoms. � Stay away from work, school, and public places. Limit physical contact with family members. Don't kiss anyone or share eating or drinking utensils. Clean surfaces you touch with disinfectant. This is to help prevent the virus from spreading. � Call your healthcare provider. Explain that you have been exposed to COVID-19 and have symptoms. Do this before going to any hospital. Wait for instructions. � Keep in mind that healthcare staff may wear protective equipment such as masks, gowns, gloves, and eye protection. You may be put in a separate room. This is to prevent the possible virus from spreading. � Tell the healthcare staff about recent travel. This includes local travel on public transport. Staff may need to find other people you have been in contact with. � Follow all instructions the healthcare staff give you. If you have been diagnosed with COVID-19 � Follow all instructions from your healthcare provider. � Don�t leave your home, except to get medical care. � Call your healthcare provider�s office before going. They can prepare and give you instructions. This will help prevent the virus from spreading. � Don�t go to work, school, or public areas. � Don�t use public transport or taxis. � Stay away from other people in your home. Have them wear face masks around you. � Don�t share household items or food. � Wear a face mask if you can. This includes at home or in a medical facility. � Cover your face with a tissue when you cough or sneeze. Throw the tissue away. Wash your hands. � Wash your hands often. Caregivers should: � Follow all instructions from healthcare staff. � Wear a face mask and protective clothing as advised. � Wash hands often. � Keep track of the sick person�s symptoms. � Clean surfaces, fabrics, and laundry thoroughly. � Keep other people away from the sick person. When to call your healthcare provider Call your healthcare provider: � If you�ve recently traveled and have symptoms � If you have been diagnosed with COVID-19 and your symptoms are worse To learn more To find out more about COVID-19, visit the CDC website at www.cdc.gov/coronavirus/2019-ncov/index.html. � 6899-[address] [employer]. [address] [place] [address], [place] [address]. All rights reserved. This information is not intended as a substitute for professional medical care. Always follow your healthcare professional's instructions. This information has been adapted from [employer] Pending Studies at Discharge: No Stand-Alone Forms: My [facility], Smoking Cessation Medications and DC Order Prescriptions: New metoprolol tartrate 25 mg Tablet 12.5 mg PO BID 30 Days Qty: 30 RF: 0 lisinopril 10 mg tablet 10 mg PO DAILY Qty: 30 RF: 0 Continued atorvastatin 10 mg Tablet 10 mg PO DAILY RF: 0 metformin 1,000 mg Tablet 1,000 mg PO BID RF: 0 glipizide 5 mg Tablet 5 mg PO BID RF: 0 Discontinued naproxen sodium 220 mg Tablet 220 mg PO Q12H PRN (Reason: Pain) RF: 0 lisinopril 40 mg Tablet 40 mg PO DAILY RF: 0 Discharge Orders: Discharge Order (Routine); Ordered 05/07/21 Ordered By: Huy Ferguson/Other Patient Handouts: Managing Type 2 Diabetes Admission Data Admit Date/Time: 04/29/21 11:38 Attending Provider: Huy Gauthier Admit Provider: Huy Gauthier Primary Care Provider: Tomas Buitrago Other Providers: Huy Gauthier Other Interventions: Discharge Summary Assessment (RN) Last Done: 05/07/21 12:43
== END 2021-05-07 14:15 | disposition home or self-care (01) | DRG 177 ==
LOC: ED 08:10 → EDINP 11:38 → SUATTDRO 11:38 → 3W 14:20 → 2N 05-01 19:18
DX: I95.89 Other hypotension; J12.82 Pneumonia due to coronavirus disease 2019; U07.1 COVID-19; E11.9 Type 2 diabetes mellitus without complications; Z79.84 Long term (current) use of oral hypoglycemic drugs; E86.0 Dehydration; E78.5 Hyperlipidemia, unspecified; R74.01 Elevation of levels of liver transaminase levels; E87.1 Hypo-osmolality and hyponatremia; I47.2 Ventricular tachycardia; I10 Essential (primary) hypertension; J96.01 Acute respiratory failure with hypoxia